=== PATIENT | male | born 1990 | race Caucasian/White ===

== ENCOUNTER 2024-07-10 17:46 | Emergency (ER) | payer MEDICARE, MEDICAID, SELFPAY | END 2024-07-10 19:17 | disposition left against medical advice (07) | LOC: HO.ED 19:03 | PROVIDERS: Emergency Provider Emergency Medicine Emergency Medical Services; PCP Internal Medicine | DX: S61.411A Laceration without foreign body of right hand, initial encounter (principal); X58.XXXA Exposure to other specified factors, initial encounter; Y93.9 Activity, unspecified; Y92.9 Unspecified place or not applicable; Y99.9 Unspecified external cause status; Z53.21 Procedure and treatment not carried out due to patient leaving prior to being seen by health care provider ==

== ENCOUNTER 2024-09-14 11:16 | Outpatient (AMB) | payer MEDICARE, MEDICAID, SELFPAY ==
--- NOTE | 2024-09-14 11:19 | A.OFFVIS_ITS ---
Vital Signs 09/14/24 11:39 Height 5 ft 10 in Weight 275 lb BMI 39.5 Intake Visit Reasons: SHIPPING AND RECEIVING- RT knee pain Intake Note: Darryl is a 33 year old male who presents today for a new patient evaluation of RT knee pain. Patient reports about 2-3 years ago he was training on treadmill, running for an hour straight. He felt relief after two months with a collagen supplement. He continues to have intermittent pain at the anterior aspect of knee. States running does not feel the same. He has clicking when he steps on his leg. Occasional sharp pain. His knee feels weak, stating feels like his knee will snap. Denies giving out. No numbness or tingling. States some discomfort in his left knee as well. Allergies SEASONAL ALLERGIES Allergy (Mild, Uncoded 09/14/24 11:38) UNKNOWN Medication List - Last Reconciled 09/14/24 by Mady Petty PA-C No Known Home Meds HPI HPI SHIPPING AND RECEIVING- RT knee pain: Details: 33-year-old gentleman presents to the office today for right knee pain. He states the pain isn't present for a few years due to over training on a treadmill. He complains of pain behind the patella and constant crepitus. [facility] Social History (Updated 09/14/24 @ 11:39 by BRANDO Estrella) Patient Tobacco Use Status: Never used Tobacco Current occupational status: unemployed Review of Systems Const All systems reviewed & are unremarkable except as noted in HPI and below Physical Exam Vital Signs: BMI result Body Mass Index 39.5 Const General: cooperative and no acute distress Orientation/consciousness: patient oriented x3 Resp Effort & Inspection: normal respiratory effort and able to speak in complete sentences Cardio Peripheral pulses: Peripheral pulses 2+ throughout Neuro General: patient oriented x3 Extrem Other: Right knee skin intact, no erythema or joint effusion. Lateral retropatellar tenderness. ROM full with crepitus. Negative steinmans. No ligamentous laxity. NVI. Office Procedures AMB Joint Injection/Aspiration Joint Injection/Aspiration Details: NO INJECTION GIVEN TODAY Coding Procedure code (CPT) selection complete Results Reviewed Results Reviewed: X-rays of the right knee obtained in the office today and reviewed by me are negative for any acute or chronic abnormalities. Assessment & Plan Assessment & Plan (1) Chondromalacia, right knee: Code(s): M94.261 - Chondromalacia, right knee Category: Medical Plan: We discussed options which include PT, NSAIDs and injections. She will defer on the injection today and proceed with PT and NSAIDs. If symptoms persist she will contact me for an injection, otherwise, prn. Orders: Orders XR knee RT 3V Today M17.11 - Unilateral primary osteoarthritis, right knee XR knee LT 1V Today M25.562 - Pain in left knee Coding Level of Care Code New Pt Level 3 (13657) Complex EM visit Add On G2211 Diagnoses Chondromalacia, right knee M94.261
[2024-09-14 11:39] VITALS: BMI 39.5
== END 2024-09-14 12:10 | disposition home or self-care (01) ==
PROVIDERS: PCP Internal Medicine; Visit Provider Physician Assistant
DX: M94.261 Chondromalacia, right knee (principal)
CPT/HCPCS: 99203; G2211

== ENCOUNTER 2024-09-14 13:58 | Outpatient (REF) | payer MEDICARE, MEDICAID, SELFPAY ==
--- NOTE | ~2024-09-14 | XR_ITS ---
EXAMINATION: XR KNEE 3 VIEWS RIGHT HISTORY: M17.11 - Unilateral primary osteoarthritis, right knee COMPARISON: Comparison is made with the prior examination dated 11/03/2019. FINDINGS: Standing AP views of the bilateral knees and 2 additional views of the right knee are submitted. Osseous mineralization is normal. There is no fracture or dislocation. The joint spaces are preserved. The soft tissues are unremarkable. XR/XR knee RT 3V IMPRESSION: Unremarkable examination of the right knee. Electronically signed by: Owen Brock MD 09/14/2024 03:51 PM YONY
== END 2024-09-14 13:59 | disposition home or self-care (01) ==
LOC: HO.HOSX 13:58
PROVIDERS: Visit Provider Physician Assistant
DX: M17.11 Unilateral primary osteoarthritis, right knee (principal); M25.562 Pain in left knee
CPT/HCPCS: 73562; 99202; J1010; J2003

== ENCOUNTER 2024-09-20 10:17 | Outpatient (AMB) | payer MEDICARE, MEDICAID, SELFPAY ==
[2024-09-20 10:19] VITALS: BMI 40.9
--- NOTE | 2024-09-20 10:19 | A.OFFVIS_ITS ---
Vital Signs 09/20/24 10:19 Height 5 ft 10 in Weight 285 lb 6 oz BMI 40.9 Intake Visit Reasons: Scalp cyst Intake Note: This patient was referred by Dr. Gould for scalp cyst. Pt c/o; occasional pain and discomfort when cyst is pressed on, no headaches or dizziness. Tire Bladder Maker Required: No Accompanied by: Other Relationship Allergies SEASONAL ALLERGIES Allergy (Mild, Uncoded 09/20/24 10:26) UNKNOWN Medication List - Last Reconciled 09/20/24 by Rasta Fernandes MD No Known Home Meds HPI HPI Scalp cyst: Details: 33-year-old male here because of the scalp cyst. He says that he has had this lump on the parietal area for a few years. However, this has been starting to bother him with discomfort and occasional pain and he wants this removed He says he had a scalp cyst this was removed in the past as well. [facility] Medical History (Updated 09/20/24 @ 10:37 by Rasta Fernandes MD) Scalp cyst Morbid obesity Surgical History No pertinent past surgical history Social History Patient Tobacco Use Status: Never used Tobacco Current occupational status: unemployed Review of Systems Const Denies chills and Denies fever(s) Card Denies chest pain, Denies dyspnea and Denies dyspnea on exertion Resp Denies cough, Denies dyspnea and Denies dyspnea on exertion GI Denies hematochezia and Denies change in bowel habits Denies hematuria and Denies difficulty urinating Musc Denies back pain and Denies limited range of motion Neuro Denies focal weakness and Denies convulsions Psych Denies depression and Denies mood swings Physical Exam Vital Signs: BMI result Body Mass Index 40.9 Const General: comfortable and no acute distress Orientation/consciousness: patient oriented x3 HEENT Other: Scalp cyst, about 6 mm in diameter, on the parietal area, noninflamed Neck Neck: Yes no lymphadenopathy Resp Auscultation: clear to auscultation bilaterally Cardio Rhythm: regular rhythm GI Palpation (GI): Soft to palpation, nontender and no guarding Neuro General: patient oriented x3 Assessment & Plan Assessment & Plan (1) Scalp cyst: Code(s): L72.9 - Follicular cyst of the skin and subcutaneous tissue, unspecified Category: Medical Plan: He wants this removed. I explained the technique of excision under local anesthesia. I reviewed the risks including but not limited to bleeding infections, as well as the benefits and alternatives. He understands and wants to proceed. This will be done as the next visit in the office. Coding Level of Care Code New Pt Level 3 (33015) Diagnoses Scalp cyst L72.9
--- OUTSIDE RECORDS SUMMARY | 2024-09-20 12:18 | XMS_ITS | Encounter Summary ---
Author Organization [employer] Address [address] [facility] [address] [place] [address] Care Team Providers Care Robot Programmer Name Role Phone Shauna Grimes MD Primary Care Provide r Encounter Details Date Type Department Care Team ([facility] st Contact Info) Description 09/05/2024 Telephone [facility] [address] [place] [address] All Lebron MD [address] [place] [address] Social History Tobacco Use Types Packs/Day Years Used Date Smoking Tobacco: Never Passive Smoke Exposure: Never Smokeless Tobacco: Never Alcohol Use Standard Drinks/Week Comments Never 0 (1 standard drink = 0.6 oz pur e alcohol) Depression Answer Date Recorded Patient Health Questionnaire-9 Score 8 12/04/2022 Housing Stability Answer Date Recorded What is your housing situation today? I have kendrabrad early 06/12/[address] you li ve. Do you have problems with any of the following? None of the above 06/12/2023 Food Insecurity Answer Date Recorded Within the past 12 months, y ou worried that your food would run out before you got money to buy more: Never True 06/12/2023 Within the past 12 months,th e food you bought just didn't last and you didn't have enough money to get more: Never True Transportation Answer Date Recorded In the past 12 months, has l ack of transportation kept you from medical appts, meetings, work or from getting things needed for daily living? No 06/12/2023 Utilities Answer Date Recorded In the past 12 months, has t he electric, gas, oil or water company threatened to shut off services in your home? No 06/12/2023 Depression Answer Date Recorded Patient Health Questionnaire-2 Score 1 12/04/2022 Sex and Gender Information Value Date Recorded Sex Assigned at Male 06/22/2022 10:15 AM EDT Legal Sex Male 10:15 AM EDT Gender Identity Male 06/22/2022 10:15 AM EDT Sexual Orientation Straight 06/22/2022 10 :15 AM EDT documented as of this encounter Plan of Treatment Upcoming Encounters Date Type Department Care Team (Late st Contact Info) Description 10/13/2024 2:45 PM EST Office Visit [facility] [address] [place] [address] Shauna Grimes MD [address] [place] [phone] documented as of this encounter Visit Diagnoses Not on filedocumented in this encounter Additional Health Concerns Assessment Noted Time PHQ-9 Depression Total Score: 8 12/05/19 23 1:58 PM EDT documented as of this encounter Care Teams Robot Programmer Relationship Specialty Start Date End Date Shauna Grimes MD [address] [place] [phone] PCP - General Family Medicine 01/20/19 documented as of this encounter
--- OUTSIDE RECORDS SUMMARY | 2024-09-20 12:18 | XMS_ITS | Encounter Summary ---
Author Organization [employer] Address [address] [facility] [address] [place] [address] Care Team Providers Care Supervisor Photocomposition Name Role Phone Shauna Grimes MD Primary Care Provide r Encounter Details Date Type Department Care Team (Latest Contact Info) Description 08/30/2024 Travel Social History Tobacco Use Types Packs/Day Years [...] Description 10/13/2024 2:45 PM EST Office Visit [facility] [address] [place] [address] Shauna Grimes MD [address] [place] [address] documented as of this encounter Visit Diagnoses Not on filedocumented in this encounter Additional Health Concerns Assessment Noted Time PHQ-9 Depression Total Score: 8 12/05/19 23 1:58 PM EDT documented as of this encounter Care Teams Supervisor Photocomposition Relationship Specialty Start Date End Date Shauna Grimes MD [address] [place] [address] PCP - General Family Medicine 01/20/19 documented as of this encounter
--- OUTSIDE RECORDS SUMMARY | 2024-09-20 12:18 | XMS_ITS | Encounter Summary ---
Author Organization [employer] Address [address] [place] [address] 7t [place] [address] Care Team Providers Care Senior Power Scheduler Name Role Phone Shauna Grimes MD Primary Care Provide r Reason for Referral * Consultation (Routine) - Authorized Specialty Diagnoses / Procedures Referred By Contac t Referred To Contact General Surgery Diagnoses Scalp cyst All Lebron MD [address] [place] [address] Phone: tel: fax: Rasta Fernandes MD [address] [place] [address] [place] [address] Phone: tel: fax: Referral ID Status Reason Start Date Expiration Date Visits Requested Visits Authorized [id number] Authorized Specialty Services Required 09/05/2024 09/05/2025 1 1 Reason for Visit * Reason Comments Sick Onsite Cyst on scalp Encounter Details Date Type Department Care Team (Late st Contact Info) Description 09/05/2024 3:00 PM EST Office Visit [facility] [address] [place] [address] [phone] All Lebron MD [address] [place], [place] [phone] Scalp cyst (Primary Dx) Social History Tobacco Use Types Packs/Day Years Used Date Smoking Tobacco: Never Passive Smoke Exposure: Never Smokeless Tobacco: Never Alcohol Use Standard Drinks/Week Comments Never 0 (1 standard drink = 0.6 oz pur e alcohol) Depression Answer Date Recorded Patient Health Questionnaire-9 Score 8 12/04/2022 Housing Stability Answer Date Recorded What is your housing situation today? I have ekndra early 06/12/[address] you [...] AM EDT documented as of this encounter Last Filed Vital Signs Vital Sign Reading Time Taken Comments Blood Pressure 142/87 09/05/2024 3:06 PM EST Pulse 88 09/05/2024 3:06 PM EST Temperature 35.4 ??C (95.7 ??F) 09/05/2024 3:06 PM ES T Respiratory Rate 20 09/05/2024 3:06 PM EST Oxygen Saturation 96% 09/05/2024 3:06 PM EST Inhaled Oxygen Concentration - - Weight 129 kg (284 lb) 09/05/2024 3:06 PM EST Height 177.8 cm (5' 10 ) 09/05/2024 3:06 PM EST Body Mass Index 40.75 09/05/2024 3:06 PM EST documented in this encounter Progress Notes * All Hampton MD - 09/05/2024 3:00 PM EST SUBJECTIVE Darryl Marin is a 33 y.o. male who presents for Sick Onsite (Cyst on scalp). Pt here with c/o painful cyst on his scalp. He states he has had this in the past and was surgically removed Review of Systems Constitutional: Negative for fever. HENT: Negative for sore throat. Respiratory: Negative for cough and shortness of breath. Cardiovascular: Negative for chest pain. Gastrointestinal: Negative for abdominal pain. Neurological: Negative for headaches. No Known Allergies OBJECTIVE Vitals: 09/05/24 1506 BP: (!) 142/87 BP Location: Left arm Patient Position: Sitting BP Cuff Size: Large adult Pulse: 88 Resp: 20 Temp: 95.7 ??F (35.4 ??C) TempSrc: Temporal SpO2: 96% Weight: 284 lb (129 kg) Height: 5' 10 (1.778 m) Physical Exam Skin: Comments: Small superficial round, mobile scalp lesion, no redness, no warmth, tenderness to palpation Assessment/Plan Problem List Items Addressed This Visit Scalp cyst - Primary Patient with a small lesion on scalp, suggestive of a cyst. Plan: Referral to general surgery for excision. Relevant Orders Referral to General Surgery documented in this encounter Miscellaneous Notes * Assessment & Plan Note - All Hampton MD - 09/05/2024 3:21 PM EST Associated Problem(s): Scalp cyst Patient with a small lesion on scalp, suggestive of a cyst. Plan: Referral to general surgery for excision. documented in this encounter Plan of Treatment Upcoming Encounters Date Type Department Care Team (Late st Contact Info) Description 10/13/2024 2:45 PM EST Office Visit [facility] [address] [place] [address] Shauna Grimes MD [address] [place] [address] Scheduled Referrals Name Type Priority Associated Diagnoses Orde r Schedule Referral to General Surgery Outpatient Referral Routine Scalp cyst Expected: 09/05/2024 (Approximate), Expires: 09/05/2025 documented as of this encounter Visit Diagnoses Diagnosis Scalp cyst- Primary Sebaceous cyst documented in this encounter Additional Health Concerns Assessment Noted Time PHQ-9 Depression Total Score: 8 12/05/19 23 1:58 PM EDT documented as of this encounter Care Teams Senior Power Scheduler Relationship Specialty Start Date End Date Shauna Grimes MD [address] [place] [address] PCP - General Family Medicine 01/20/19 documented as of this encounter
--- OUTSIDE RECORDS SUMMARY | 2024-09-20 12:18 | XMS_ITS | Encounter Summary ---
Author Organization [employer] Address [address] [facility] 7t [place] [address] Care Team Providers Care Workforce Management Coordinator Name Role Phone Shauna Grimes MD Primary Care Provide r Reason for Visit * Reason Onset Date Comments Nurse Triage 08/29/2024 Encounter Details Date Type Department Care Team ([facility] Contact Info) Description 08/29/2024 Telephone [facility] [address] [place] [address] Shauna Grimes MD [address] [place] [address] Nurse Triage Social History Tobacco Use Types Packs/Day Years Used Date Smoking Tobacco: Never Passive Smoke Exposure: Never Smokeless Tobacco: Never Alcohol Use Standard Drinks/Week Comments Never 0 (1 standard drink = 0.6 oz pur e alcohol) Depression Answer Date Recorded Patient Health Questionnaire-9 Score 8 12/04/2022 Housing Stability Answer Date Recorded What is your housing situation today? I have kendra early 06/12/[address] you [...] AM EDT documented as of this encounter Miscellaneous Notes * Telephone Encounter - Jazmine Monique LPN - 08/29/2024 11:40 AM EST Triage call returned to patient who reports that he had to cancel previous scheduled appt and wouldlike to reschedule for same concern. Has a lump on the back of upper neck in hairline that is tender to touch. No drainage no fever and no reported redness. Patient reports previously had a fatty cyst in same area removed. Disposition reviewed and patient in agreement with plan ASK/ 09/05/24 3pm.Reviewed with patient home care recommendations and reasons to call back. Pt verbalized understanding and agrees. Protocol Used: Skin Lesion - Moles or Growths (Adult) Protocol-Based Disposition: See in Office or Video Visit within 3 Days Override (Final) Disposition: See in Office or Video Visit within 2 Weeks Override Reason: Other Video visit not offered Positive Triage Question: * Patient wants to be seen * All higher-acuity triage questions were negative Care Advice Discussed: * Reasons To Call Back - Fever or pain occurs - Any change in a skin growth or mole - You become worse * Telephone Encounter - Anmol Muro - 08/29/2024 11:27 AM EST Symptom: Skin Lump Outcome: Schedule an urgent appointment (within 4 hours) or talk to a nurse or provider soon Reason: Red and larger than 1 inch The caller accepted this outcome. documented in this encounter Plan of Treatment Upcoming Encounters Date Type Department Care Team (Late st Contact Info) Description 10/13/2024 2:45 PM EST Office Visit [facility] [address] [place] [address] Shauna Grimes MD [address] [place] [address] documented as of this encounter Visit Diagnoses Not on filedocumented in this encounter Additional Health Concerns Assessment Noted Time PHQ-9 Depression Total Score: 8 12/05/19 23 1:58 PM EDT documented as of this encounter Care Teams Workforce Management Coordinator Relationship Specialty Start Date End Date Shauna Grimes MD [address] [place] [phone] PCP - General Family Medicine 01/20/19 documented as of this encounter
--- OUTSIDE RECORDS SUMMARY | 2024-09-20 12:18 | XMS_ITS | Encounter Summary ---
Author Organization [employer] Address [address] [facility] 7t [place] [address] Care Team Providers Care Equipment Service Associate Name Role Phone Shauna Grimes MD Primary Care Provide r Encounter Details Date Type Department Care Team (Latest Contact Info) Description 08/22/2024 Travel Social History Tobacco Use Types Packs/Day [...] Description 10/13/2024 2:45 PM EST Office Visit [facility] [address] [place] [address] Shauna Grimes MD [address] [place] [address] documented as of this encounter Visit Diagnoses Not on filedocumented in this encounter Additional Health Concerns Assessment Noted Time PHQ-9 Depression Total Score: 8 12/05/19 23 1:58 PM EDT documented as of this encounter Care Teams Equipment Service Associate Relationship Specialty Start Date End Date Shauna Grimes MD [address] [place] [phone] PCP - General Family Medicine 01/20/19 documented as of this encounter
--- OUTSIDE RECORDS SUMMARY | 2024-09-20 12:18 | XMS_ITS | Encounter Summary ---
Author Organization [employer] Address [address] [facility] 7t [place] [address] Care Team Providers Care Sandblaster Paint Sprayer Name Role Phone Shauna Grimes MD Primary Care Provide r Encounter Details Date Type Department Care Team ([facility] st Contact Info) Description 08/21/2024 Orders Only [facility] [address] [place] [address] Shauna Grimes MD [address] [place] [address] Social History Tobacco Use Types Packs/Day Years [...] Description 10/13/2024 2:45 PM EST Office Visit [facility] [address] [place] [address] Shauna Grimes MD [address] [place] [phone] documented as of this encounter Visit Diagnoses Not on filedocumented in this encounter Additional Health Concerns Assessment Noted Time PHQ-9 Depression Total Score: 8 12/05/19 23 1:58 PM EDT documented as of this encounter Care Teams Sandblaster Paint Sprayer Relationship Specialty Start Date End Date Shauna Grimes MD [address] [place] [phone] PCP - General Family Medicine 01/20/19 documented as of this encounter
--- OUTSIDE RECORDS SUMMARY | 2024-09-20 12:18 | XMS_ITS | Continuity of Care Document ---
Author Organization [facility] Address [address] [place] [address] Phone Care Team Providers Care Hearing Care Professional Name Role Phone Edson SHANNON, Estrella Unavailable Unavailable Allergies, Adverse Reactions, Alerts Substance Reaction Status Criticality No Known allergies Procedures Procedure Date OFFICE VISIT NEW PT INTERMEDIATE 2009 Advance Directives Directive Yes / No Effective Date File Name No Information Encounters Encounter Description Practice Location Reason(s) For Visit Diagnoses Date Provider Providers Copied on Encounter [facility], [address] [place], [place], [id number] , tel:+ [phone] [facility] No Information Dec-0 1-201 0 Edson De La Rosa. [address] [place], [address]. tel:[phone] OFFICE VISIT NEW PT INTERMEDIATE [facility], [address] [place], [place], [id number] , tel:+ [phone] [facility] establish care (chief complaint) AniridiaObesityOb esity Sep-0 3-201 0 Rahat Crandall. [address] [place], [place], [id number], [place]. tel:[phone] Family History Family Member Type Diagnosis Age At Onset Problem (finding) Family history of Diabetes mellitus Problem (finding) Family history of hyper tension Maternal grandfather Problem (finding) stroke Father Problem (finding) aniridia Father Problem (finding) raised blood lipids Immunizations Vaccine Date Status Comments Td (7 yrs and older) administered Source: New Immunization Record Payers Payer name Insurance type Covered constitution party ID Authoriza tion(s) No Information Social History Type Description Quantity Date Captured Comments Sex Male Smoking Status No Information Chief Complaint And Reason For Visit No Information Reason For Referral Reason For Referral No [...] Future Order: Lab Order T[facility], 3RD GENERATION (190), Appointment on: Ordered History Of Present Illness Encounter Date Complaint History Of Prese nt Illness No Information Functional Status Date Functional Assessmen t No Information Instructions Date Instruction Additional Infor mation No Information Assessments Type Assessment Date No Information Patient Care Teams Name Effective Dates (start - stop) Status Members No Information
--- OUTSIDE RECORDS SUMMARY | 2024-09-20 12:18 | XMS_ITS | Encounter Summary ---
Author Organization [email or web address] Address [address] [facility] 7t [place] [address] Care Team Providers Care Credit Relationship Manager Name Role Phone Barber Grimes MD Primary Care Provide r Reason for Referral * Consultation (Routine) - Authorized Specialty Diagnoses / Procedures Referred By Kevan sauer Referred To Contact Orthopaedic Surgery Diagnoses Chronic pain of right knee Barber Grimes MD [address] [place] [address] Phone: tel: fax: [facility] [address] [place] [address] Phone: tel: Referral ID Status Reason Start Date Expiration Date Visits Requested Visits Authorized [id number] Authorized Specialty Services Required 08/24/2024 08/24/2025 1 1 Reason for Visit * Reason Onset Date Comments Referral 08/21/2024 Encounter Details Date Type Department Care Team ([facility] st Contact Info) Description 08/21/2024 Telephone [facility] [address] [place] [address] [phone] Barber Grimes MD [address] [place] [address] [phone] Referral Social History Tobacco Use Types Packs/Day Years [...] as of this encounter Miscellaneous Notes * Addendum Note - Barber Rodriguez MD - 08/24/2024 11:04 AM ESTAddended by: BARBER ANDERSON on: 08/24/2024 11:04 AM Modules accepted: Orders * Telephone Encounter - Ines Newell RN - 08/22/2024 8:46 AM EST Patient stating it is the right knee. * Telephone Encounter - Ines Newell RN - 08/22/2024 8:40 AM EST Telephone call placed to patient in regards to message below. No answer, left voicemail. Patient tocall as needed. If patient calls back please ask which knee * Telephone Encounter - Radha Urena - 08/21/2024 3:15 PM EST Tc from pt requesting a referral for an orthopedics due to old knee injury pain has been coming andgoing as pt states is bothering. documented in this encounter Plan of Treatment Upcoming Encounters Date Type Department Care Team (Late st Contact Info) Description 10/13/2024 2:45 PM EST Office Visit [facility] [address] [place] [phone] Barber Grimes MD [address] [place] [address] Scheduled Referrals Name Type Priority Associated Diagnoses Order Schedule Referral to Orthopaedic Surgery Outpatient Referral Routine Chronic pain of right knee Expected: 08/24/2024 (Approximate), Expires: 08/24/2025 documented as of this encounter Visit Diagnoses Diagnosis Chronic pain of right knee- Primary documented in this encounter Additional Health Concerns Assessment Noted Time PHQ-9 Depression Total Score: 8 12/05/19 23 1:58 PM EDT documented as of this encounter Care Teams Credit Relationship Manager Relationship Specialty Start Date End Date Barber Griems MD [address] [place] [phone] PCP - General Family Medicine 01/20/19 documented as of this encounter
--- OUTSIDE RECORDS SUMMARY | 2024-09-20 12:18 | XMS_ITS | Encounter Summary ---
Author Organization [employer] Address [address] [facility] [address] 7[address] [place] [address] Care Team Providers Care Manager Stylist Name Role Phone Shauna Grimes MD Primary Care Provide r Encounter Details Date Type Department Care Team ([facility] st Contact Info) Description 09/15/2024 Orders Only [facility] [address] [place] [address] oMnique Davis RN Social History Tobacco Use Types Packs/Day Years [...] Description 10/13/2024 2:45 PM EST Office Visit [facility] [address] [place] [address] Shauna Grimes MD [address] [place] [address] documented as of this encounter Procedures Procedure Name Priority Date/Time Associated Diagnosis Comments CHLAMYDIA/GONORRHEA THROAT SWAB ([facility]) Routine 09/08/2024 CHLAMYDIA/GONORRHEA - URINE ([facility]) Routine 09/08/2024 SYPHILIS ABS ([facility]) Routine 09/08/2024 HEPATITIS C ANTIBODY ([facility]) Routine 09/08/2024 HIV ANTIBODY/ANTIGEN ([facility]) Routine 09/08/2024 documented in this encounter Results * HIV Ab/Ag ([facility]) (09/08/2024) HIV Ag/Ab Nonreactive Blood 09/08/2024 us Historical Provider LAB BLOOD ORDERABLES [facility] Result * Hepatitis C Antibody ([facility]) (09/08/2024) Hepatitis C Ab Nonreactive Blood 09/08/2024 us Historical Provider LAB BLOOD ORDERABLES [facility] Result * Syphilis Antibodies ([facility]) (09/08/2024) Syphilis Abs Nonreactive Borderline, Nonreactive, Weakly Reactive, Inconclusive, Specimen unsatisfactory for evaluation Blood Venous blood specimen / Unknown 09/08/2024 [facility] Provider MD LAB BLOOD ORDERABLES [facility] l Result * Chlamydia/Gonorrhea, Urine ([facility]) (09/08/2024) Chlamydia, Urine Negative Negative, Indeterminate, None Detected, Invalid, Specimen unsatisfactory for evaluation, Weakly Positive Gonorrhea, Urine Negative Negative, Indeterminate, None Detected, Invalid, Specimen unsatisfactory for evaluation, Weakly Positive Urine 09/08/2024 [facility] Provider LAB URINE ORDERABLES [facility] Result * Chlamydia/Gonorrhea Throat Swab ([facility]) (09/08/2024) Chlamydia Throat Swab Negative Gonorrhea Throat Swab Negative Swab 09/08/2024 [facility] Provider LAB MICROBIOLOGY - GENERA L ORDERABLES Final Result documented in this encounter Visit Diagnoses Not on filedocumented in this encounter Additional Health Concerns Assessment Noted Time PHQ-9 Depression Total Score: 8 12/05/19 23 1:58 PM EDT documented as of this encounter Care Teams Manager Stylist Relationship Specialty Start Date End Date Shauna Grimes MD [address] [place] [phone] PCP - General Family Medicine 01/20/19 documented as of this encounter
--- OUTSIDE RECORDS SUMMARY | 2024-09-20 12:18 | XMS_ITS | Clinical Summary ---
Author Organization [employer] Address [address] [place] [address] Care Team Providers Care Dental Technician Instructor Name Role Phone Shauna Grimes MD Primary Care Provide r Allergies No known active allergies Medications * This document contains information received from the source organization and may not represent a complete record from that organization. hydrOXYzine HCl (Atarax) 25 MG tabletIndicatio ns:Insomnia, unspecified type take 1 tablet by oral route every day at bed time 90 tablet 1 3 09/05/19 25 Discontin ued(Thera py completed ) baclofen (Lioresal) 20 MG tabletIndicatio ns:Chronic bilateral low back pain without sciatica Take 1 tablet (20 mg) by mouth 3 times daily. 90 tablet 3 09/05/19 25 Discontin ued(Thera py completed ) cholecalciferol (Vitamin D-3) 50 MCG (1999 UT) capsuleIndicati ons:Vitamin D deficiency Take 1 capsule (50 mcg) by mouth in the morning. 90 capsule 3 3 09/05/19 25 Discontin ued(Thera py completed ) fluticasone (Flonase Allergy Relief) 50 MCG/ACT nasal spray Administer 1 spray into each nostril in the morning. Shake gently. Before first use, prime pump. After use, clean tip and replace cap. 16 g 12 3 09/05/19 25 Discontin ued(Thera py completed ) Active Problems Problem Noted Date Diagnosed Date Scalp cyst 09/05/2024 Assessment & Plan (09/05/2024 3:21 PM EST): Patient with a small lesion on scalp, suggestive of a cyst. Plan: Referral to general surgery for excision. 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 Chronic bilateral low back pain without sciatica 12/04/2022 Assessment & Plan (12/04/2022 2:40 PM EDT): Apply heat on affected area XRAYs other for further investigation Chiropractor referral as per patient's request Ibuprofen 800mg Q 8hrs with full stomach PRN Baclofen 20mg Q 8hrs as needed (may cause somnolence do not drive preferable to take it only at night) RTC 3 months Binge eating disorder 12/04/2022 Anxiety 12/04/2022 Assessment & Plan (01/04/2023 10:09 AM EDT): Assessment: Patient with anxiety, (difficult to control worry difficulty sleeping, over thinking perseverative thoughts) and binge eating (weight fluctuation, overeating, without purging) in the context of a history of trauma in childhood and difficulty with time management and organization. Patient will benefit from out patient therapy (modality/interventions). At this time Darryl Marin meets criteria for Visit Diagnoses: Problem List Items Addressed This Visit Unspecified Anxiety Disorder Binge Eating Disorder Patient ready to address current needs Yes Strengths include Coping mechanism of listening to music and creating beats. PLAN: 1. Follow up with [facility] [place]: Not recommended for follow-up 2. Patient goal is to engage in OP therapy 3. Behavioral Recommendations a. Explore deep breathing and grounding b. Contact [facility] behavioral health supports for follow up as needed Health care maintenance 12/04/2022 Erectile dysfunction 11/05/2022 Class 3 severe obesity due t o excess calories without serious comorbidity in adult 11/05/2022 Encounters Date Type Department Care Team Description 09/15/2024 Orders Only [facility] MEDICINE [address] [place] [id number] Monique Davis RN 09/05/2024 3:00 PM EST Office Visit [address] [address] All Lebron MD Scalp cyst (Primary Dx) 09/05/[address] [facility] MEDICINE [address] [place] [address] All Lebron MD 09/05/2024 Travel 08/30/2024 Travel 08/29/2024 Telephone [facility] [address] [place] [address] Shauna Grimes MD Nurse Triage 08/22/2024 Travel 08/21/2024 Orders Only [facility] [address] [place] [address] Shauna Grimes MD 08/21/2024 Telephone [facility] [address] [place] [address] Shauna Grimes MD Referral 08/21/2024 Telephone [facility] [address] [place] [address] Shauna Grimes MD Nurse Triage from Last 3 Months Immunizations Name Administration Dates Next Due HPV 9-Valent 11/23/2022,,10/28/2021,2020 Influenza Injectable Quadriv alant Preservative Free IIV4 MDCK 05/06/2022 Influenza injectable quadriv alent preservative free 04/14/2019 MMR 01/30/2019 Moderna Covid-19 Vaccine 12+ 11/22/2021,07/15/20 21,11/21/2020 Pfizer Covid-19 Vaccine 12+ Bivalent 05/06/2022 Tdap 07/15/2021,01/30/2019 Social History Tobacco Use Types Packs/Day Years Used Date Smoking Tobacco: Never Passive Smoke Exposure: Never Smokeless Tobacco: Never Tobacco Cessation:Counseling Given: Not Answered Alcohol Use Standard Drinks/Week Comments Never 0 [...] Orientation Straight 06/22/2022 10 :15 AM EDT Last Filed Vital Signs Vital Sign Reading [...] Mass Index 40.75 09/05/2024 3:06 PM EST Plan of Treatment Upcoming Encounters Date Type Department Care Team (Late st Contact Info) Description 10/13/2024 2:45 PM EST Office Visit [facility] MEDICINE [address] [place], [place] [phone] Shauna Grimes MD [address] [place] [address] Health Maintenance Due Date Last Done Comments Alcohol/Substance Use Screening 2000 Family Planning (PISQ) 11/28/2003 Depression Screening 12/05/2023 12/04/2022, 12/05/19 SDOH Screening 12/05/2023 12/04/2022 Hepatitis B Vaccines (3 of 3 - Hep B Twinrix 3-dose series) 12/27/2024 07/29/2024, 06/16/2024 Tobacco Screening 09/05/2025 09/05/2024 Lipid Panel 12/05/2027 12/04/2022 DTaP/Tdap/Td Vaccines (3 - Td or Tdap) 07/15/2031 07/15/2021, 01/30/2019 Zoster Vaccines (2 of 2) 2038 07/11/2024 RSV Patients and Patients Aged 60 years or older (1 - 1-dose 75+ series) 11/28/2063 HPV Vaccines Completed 11/23/2022, 0808/2021, 10/28/2021, Additional history exists COVID-19 Vaccine Completed 06/01/2024, 01/2023, 05/06/2022, Additional history exists Influenza Vaccine Completed 06/01/2024, , 04/14/2019 Pneumococcal Vaccine: Pediatrics (0 to 5 Years) and At-Risk Patients (6 to 49) Years) Aged Out 06/16/2024 No longer eligible based on patient's age to complete this topic Meningococcal Vaccine Aged Out 07/11/2024 No bony elvira eligible based on patient's age to complete this topic Hepatitis A Vaccines Aged Out 07/29/2024, 06/16/20 24 No longer eligible based on patient's age to complete this topic HIV Screening Completed 09/08/2024 Hepatitis C Screening Completed 09/08/2024 HIB Vaccines Aged Out No longer eligi ble based on patient's age to complete this topic IPV Vaccines Aged Out No longer eligi ble based on patient's age to complete this topic RSV under 20 months Aged Out No longe r eligible based on patient's age to complete this topic Rotavirus Vaccines Aged Out No longer eligible based on patient's age to complete this topic Procedures Procedure Name Priority Date/Time Associated Diagnosis Comments HIV ANTIBODY/ANTIGEN ([place] DPH) Routine 09/08/2024 HEPATITIS C ANTIBODY ([place] DPH) Routine 09/08/2024 SYPHILIS ABS ([place] DP) Routine 09/08/2024 CHLAMYDIA/GONORRHEA - URINE ([place] DP) Routine 09/08/2024 CHLAMYDIA/GONORRHEA THROAT SWAB ([place] DP) Routine 09/08/2024 LIPID PANEL, STANDARD Routine 12/04/2022 2:35 PM EDT Class 3 severe obesity due to excess calories without serious comorbidity with body mass index (BMI) of 40.0 to 44.9 in adult ([facility]) from Last 3 Months or Most Recently Relevant to Health Maintenance Results * Chlamydia/Gonorrhea Throat Swab ([place] DP) (09/08/2024) Chlamydia Throat Swab Negative Gonorrhea Throat Swab Negative Swab 09/08/2024 [facility] Provider MD LAB MICROBIOLOGY - GENERA L ORDERABLES Final Result * Chlamydia/Gonorrhea, Urine ([place] DP) (09/08/2024) Pathologist [facility] Chlamydia, Urine Negative Negative, Indeterminate, None Detected, Invalid, Specimen unsatisfactory for evaluation, Weakly Positive Gonorrhea, Urine Negative Negative, Indeterminate, None Detected, Invalid, Specimen unsatisfactory for evaluation, Weakly Positive Urine 09/08/2024 [facility] Provider MD LAB URINE ORDERABLES [place] [facility] Result * Syphilis Antibodies (DP) (09/08/2024) Syphilis Abs Nonreactive Borderline, Nonreactive, Weakly Reactive, Inconclusive, Specimen unsatisfactory for evaluation Blood Venous blood specimen / Unknown 09/08/2024 [facility] Provider LAB BLOOD ORDERABLES [place] Result * Hepatitis C Antibody ([place] DP) (09/08/2024) Hepatitis C Ab Nonreactive Blood 09/08/2024 Historical Provider MD LAB BLOOD ORDERABLES [place] Result * HIV Ab/Ag ([place] DP) (09/08/2024) HIV Ag/Ab Nonreactive Blood 09/08/2024 Historical Provider MD LAB BLOOD ORDERABLES [place] [facility] Result * (ABNORMAL) Lipid Panel, Standard (12/04/2022 2:35 PM EDT) Cholesterol, Total 223(H) <200 mg/dL [facility] HDL Cholesterol 61 > OR = 40 mg/dL [facility] Triglycerides 155(H) <150 mg/dL [facility] LDL Cholesterol 133(H) mg/dL (calc) [facility] Comment: Reference range: <100 Desirable range <100 mg/dL for primary prevention; ?? <70 mg/dL for patients with CHD or diabetic patients with > or = 2 CHD risk factors. LDL-C is now calculated using the Mark-Laila calculation, which is a validated novel method providing better accuracy than the Friedewald equation in the estimation of LDL-C. Mark YOST et al. GUZMAN. 2013;310(19): 2135-8594 (http://education.[employer].Supportie/faq/LSC939) Chol/HDLC Ratio 3.7 <5.0 (calc) [facility] [place] [facility] Non-HDL Cholesterol 162(H) <130 mg/dL (calc) [facility] Comment: For patients with diabetes plus 1 major ASCVD risk factor, treating to a non-HDL-C goal of <100 mg/dL (LDL-C of <70 mg/dL) is considered a therapeutic option. Blood Venous blood specimen / Unknown 12/04/2022 2:35 PM EDT 12/04/2022 2:36 PM EDT Shauna Rodriguez MD LAB BLOOD ORDERABLES Final Result [facility] [address], [place] [address] [facility] [address] [place] [address] from Last 3 Months or Most Recently Relevant to Health Maintenance Insurance MEDICARE Member Subscriber Plan / Payer (Ef fective 2022-Present) Name:Darryl Marin Member ID:[id number] Relation to Subscriber:Self Name:Darryl Marin Subscriber ID:[id number] Payer ID:STATE Group ID:Not on file Type:Medicare Address: [place] [employer] [facility]. [address] [address] [facility] STANDARD Care Teams Dental Technician Instructor Relationship Specialty Start Date End Date Shauna Grimes MD [address] [place] [phone] PCP - General Family Medicine 01/20/19
--- OUTSIDE RECORDS SUMMARY | 2024-09-20 12:18 | XMS_ITS | Encounter Summary ---
Author Organization [employer] Address [address] [facility] 7t [place] [address] Care Team Providers Care Crisis Intervention Counselor Name Role Phone Shauna Grimes MD Primary Care Provide r Encounter Details Date Type Department Care Team (Latest Contact Info) Description 09/05/2024 Travel Social History Tobacco Use Types Packs/Day [...] Description 10/13/2024 2:45 PM EST Office Visit [facility] MEDICINE [address] [place] [address] Shauna Grimes MD [address] [place] [address] documented as of this encounter Visit Diagnoses Not on filedocumented in this encounter Additional Health Concerns Assessment Noted Time PHQ-9 Depression Total Score: 8 12/05/19 23 1:58 PM EDT documented as of this encounter Care Teams Crisis Intervention Counselor Relationship Specialty Start Date End Date Shauna Grimes MD [address] [place] [id number] PCP - General Family Medicine 01/20/19 documented as of this encounter
--- OUTSIDE RECORDS SUMMARY | 2024-09-20 12:18 | XMS_ITS | Encounter Summary ---
Author Organization [employer] Address [address] [facility] 7t [place] [address] Care Team Providers Care Batch Roller Operator Name Role Phone Shauna Grimes MD Primary Care Provide r Reason for Visit * Reason Onset Date Comments Nurse Triage 08/21/2024 Encounter Details Date Type Department Care Team ([facility] Contact Info) Description 08/21/2024 Telephone [facility] [address] [place] [address] Shauna Grimes MD [address] [place] [address] Nurse Triage Social History Tobacco Use Types [...] encounter Miscellaneous Notes * Telephone Encounter - Leticia Mccoy RN - 08/21/2024 3:32 PM EST Call returned to Darryl Marin to triage below. Reports having a lump on scalp and its tender to touch. Not sure if having redness or white center. Per pt about the size of a dime. Per pt has had lump for 2 years. Pt states had sx previously where had area lanced by a provider. Pt advised of disposition, agrees to sick on site with team provider for exam. Reviewed home care advise, ER precautions and reasons to call back. Protocol Used: Skin Lump or Localized Swelling (Adult) Protocol-Based Disposition: See in Office or Video Visit within 3 Days Override (Final) Disposition: See in Office or Video Visit within 2 Weeks Override Reason: No appointments available Future Appointments Date Time Provider Department Center 08/28/2024 10:15 AM Dalila Aguilar DO [facility] 10/13/2024 2:45 PM Shauna Rodriguez MD [facility] Insurance verified as active per Real Time Eligibility in [facility]. Video visit offer not recorded Positive Triage Question: * Small swelling or lump present > 1 week * All higher-acuity triage questions were negative Care Advice Discussed: * Reasons To Call Back - Fever occurs - Spreading redness occurs - Swelling becomes painful - You become worse * Telephone Encounter - Radha Urena - 08/21/2024 3:13 PM EST Symptom: Skin Lump Outcome: Schedule an appointment to be seen within 3 days Reason: Caller denied all higher acuity questions The caller accepted this outcome. documented in this encounter Plan of Treatment Upcoming Encounters Date Type Department Care Team (Late st Contact Info) Description 10/13/2024 2:45 PM EST Office Visit [facility] MEDICINE [address] [place] [phone] Shauna Grimes MD [address] [place] [address] documented as of this encounter Visit Diagnoses Not on filedocumented in this encounter Additional Health Concerns Assessment Noted Time PHQ-9 Depression Total Score: 8 12/05/19 23 1:58 PM EDT documented as of this encounter Care Teams Batch Roller Operator Relationship Specialty Start Date End Date Shauna Grimes MD [address] [place] [id number] PCP - General Family Medicine 01/20/19 documented as of this encounter
--- OUTSIDE RECORDS SUMMARY | 2024-09-20 12:18 | XMS_ITS | Continuity of Care Document ---
Author Organization [employer] Address [address] [place] [address] Phone Care Team Providers Care Flat Grinder Operator Name Role Phone [employer] AUTO SALVAGE WORKER, Bebe Unavailable Unavailab le Allergies, Adverse Reactions, [...] W/OPTIC OFFICE/OUTPATIENT VISIT, EST Medical [employer] WIRELESS SALES ASSOCIATE ROUTINE VENIPUNCTURE ASSAY OF AMYLASE ASSAY OF LIPASE GLYCOSYLATED HEMOGLOBIN TEST COMPLETE CBC W/AUTO DIFF WBC LIPID PANEL COMPREHEN METABOLIC PANEL OFFICE/OUTPATIENT VISIT, EST Medical [employer] Enc WIRELESS SALES ASSOCIATE TELEHEALTH VISIT, EST [facility] [employer] Enc WIRELESS SALES ASSOCIATE OFFICE/OUTPATIENT VISIT, EST Phenergan (Promethazine hcl) injection J Inj Administration Non-antineoplastics J Medical [employer] Enc WIRELESS SALES ASSOCIATE TELEHEALTH VISIT, EST [facility] PH[facility] E/M PHYS/QHP 5-10 MIN OFFICE/OUTPATIENT VISIT, [...] Providers Copied on Encounter OFFICE/[facility]PAT IENT VISIT, [facility] [address], [place], [id number] , [place] [phone] [facility] Medical Clearance (chief complaint) Flu-like symptomsViral illnessElevated liver enzymesElevated bilirubinDyslipi demia 2 [employer] Bebe. [address] [place], [address], [place]. tel:[phone] [facility], [address], [place], [id number] , [place] [phone] [facility] Medical Elevated liver enzymesElevated bilirubinHypertr iglyceridemia 2 Shadowens Bebe. [address] [place], [address], [place]. tel:[phone] OFFICE/OUTPAT IENT VISIT, [facility] [address], [place], [id number] , [place] [phone] [facility] Medical Med refill (chief complaint) Recurrent pancreatitisScre ening for lipid disorders 2 Shadowens Bebe. [address] [place], [address], [place]. tel:[phone] TELEHEALTH VISIT, [facility], [address], [place], [id number] , [place] [phone] Telehealth [facility] exposure to covid (chief complaint) COVID-19 virus infection 2 Shadowens Bebe. [address] [place], [address], [place]. [phone] OFFICE/OUTPAT IENT VISIT, [facility], [facility]., [address], [place], [id number] , [place] tel:[phone] [facility] Medical Vomiting (chief complaint) Recurrent pancreatitis 2 Cookie Tubbs. [address] , [place], [place], [id number], [place]. [phone] TELEHEALTH VISIT, [facility], [facility]., [address], [place], [id number] , [place] tel:[phone] [facility] Medical ear infection (chief complaint) Right ear pain 0 Irma Fu. [address] [place], [place], [id number], [place]. tel:[phone] OFFICE/OUTPAT IENT VISIT, [facility], [facility]., [address], [place], [id number] , [place] tel: [phone] [facility] Medical Seizure (chief complaint) Nonintractable epilepsy without status epilepticus, unspecified epilepsy type 8 Alma Terry APRN,[facility]- . [address] [facility] [facility] , [place], [place], [id number], [place]. tel:[phone] Family History Family Member Type Diagnosis Age At Onset No Information Payers Payer name Insurance type Covered democrat ID Sheela lara(s) [facility] Medicaid Count Includes [facility] [id number] Social History Type Description Quantity Date Captured [...] Lab Order Comp. Me tabolic Panel (14) ([id number]), Ordered on: Ordered Future Order: Lab Order Lipid Pa sandrine ([id number]), Ordered on: Ordered History Of Present Illness [...] Mental Status Date Cognitive Assessment Orientation - [place] ed to time, place, person, situation. Patient Care Teams Name Effective Dates (start - stop) Status Members No Information
--- OUTSIDE RECORDS SUMMARY | 2024-09-20 12:18 | XMS_ITS | Encounter Summary ---
Author Organization [employer] Address [address] [facility] 7t [place] [address] Care Team Providers Care Bolter Helper Name Role Phone Shauna Grimes MD Primary Care Provide r Encounter Details Date Type Department Care Team ([facility] Contact Info) Description 11/17/2022 Telephone [facility] MEDICINE [address] [place] [phone] Shauna Grimes MD [address] [place] [address] [phone] Social History Tobacco Use Types Packs/Day Years Used Date Smoking Tobacco: Never Smokeless Tobacco: Never Alcohol Use Standard Drinks/Week Comments Never 0 (1 standard drink = 0.6 oz pur e alcohol) Sex and Gender Information Value Date Recorded Sex Assigned at Male 06/22/2022 10:15 AM EDT Legal Sex Male 10:15 AM EDT Gender Identity Male 06/22/2022 10:15 AM EDT Sexual Orientation Straight 06/22/2022 10 :15 AM EDT documented as of this encounter Plan of Treatment Upcoming Encounters Date Type Department Care Team (Late Contact Info) Description 10/13/2024 2:45 PM EST Office Visit [facility] MEDIC[facility] [address] [place] [phone] Shauna Grimes MD [address] [place] [phone] documented as of this encounter Visit Diagnoses Not on filedocumented in this encounter Care Teams Bolter Helper Relationship Specialty Start Date End Date Shauna Grimes MD [address] [place] [address] PCP - General Family Medicine 01/20/19 documented as of this encounter
== END 2024-09-20 10:34 | disposition home or self-care (01) ==
PROVIDERS: PCP Internal Medicine; Referring Provider Internal Medicine; Visit Provider Surgery
DX: L72.9 Follicular cyst of the skin and subcutaneous tissue, unspecified (principal)
CPT/HCPCS: 99203

== ENCOUNTER → 2024-09-20 10:17 | Outpatient (BNVA) | payer MEDICARE, MEDICAID, SELFPAY | PROVIDERS: PCP Internal Medicine; Referring Provider Internal Medicine; Visit Provider Surgery | DX: L72.9 Follicular cyst of the skin and subcutaneous tissue, unspecified (principal) | CPT/HCPCS: 99202 ==

== ENCOUNTER 2024-09-27 13:55 | Outpatient (AMB) | payer MEDICARE, MEDICAID, SELFPAY ==
[2024-09-27 13:56] VITALS: BMI 40.9
--- NOTE | 2024-09-27 13:56 | A.OFFVIS_ITS ---
Vital Signs 09/27/24 13:56 Height 5 ft 10 in Weight 285 lb 6.002 oz BMI 40.9 Intake Visit Reasons: excision Scalp cyst Intake Note: Office procedure: excision Scalp cyst Mechanical Equipment Sales Engineer Required: No Accompanied by: Life Partner Allergies SEASONAL ALLERGIES Allergy (Mild, Uncoded 09/27/24 14:02) UNKNOWN HPI HPI excision Scalp cyst: Details: He is here for excision of the scalp cyst. An current exam today, I could not actually feel the cyst but he insisted that he could feel the cystic mass he wants this removed because of pain. I had him marked the area where he believes the cyst is. He had given informed consent. [facility] Medical History Scalp cyst Morbid obesity Surgical History No pertinent past surgical history Social History Patient Tobacco Use Status: Never used Tobacco Current occupational status: unemployed Physical Exam Vital Signs: BMI result Body Mass Index 40.9 Office Procedures Excision Details: I had marked the area where he pointed to us where the cyst was. This area was prepped and draped. Lidocaine 1% was used for local anesthesia. I made an elliptical incision on the scalp surrounding this area with a blade 15. This carried down through the full-thickness of the skin and subcutaneous fat. I excised this entire area although I did not really feel an obvious cyst. I closed the incision with full-thickness nylon 3-0 simple interrupted sutures. Bacitracin was applied and the procedure was completed. He tolerated procedure well. There were no immediate complications. There was minimal blood loss. [id number] scalp/neck/hands/feet/genitalia 0.6cm-1cm Procedure code (CPT) selection complete Assessment & Plan Assessment & Plan (1) Scalp cyst: Code(s): L72.9 - Follicular cyst of the skin and subcutaneous tissue, unspecified Category: Medical Plan: Status post excision. He tolerated procedure well. He was given wound care instructions. I will see him for removal sutures in about 2 weeks. Coding Level of Care Code Procedure Only Diagnoses Scalp cyst L72.9 CPT Codes Scalp/Neck/Hands/Feet/Genetalia - CPT: 87619-Ynjmehou scalp/neck/hands/feet/genitalia 0.6cm-1cm ([id number])
--- OUTSIDE RECORDS SUMMARY | 2024-09-27 15:14 | XMS_ITS | Continuity of Care Document ---
Author Organization [employer] Address [address] [place] [address] Phone Care Team Providers Care Heel Coverer Machine Operator Name Role Phone Shadowens PODIATRIC SURGEON, Bebe Unavailable Unavailab le Allergies, Adverse Reactions, [...] W/OPTIC OFFICE/OUTPATIENT VISIT, EST Medical [employer] Enc ASSISTANT PROFESSOR OF ECONOMICS ROUTINE VENIPUNCTURE ASSAY OF AMYLASE ASSAY OF LIPASE GLYCOSYLATED HEMOGLOBIN TEST COMPLETE CBC W/AUTO DIFF WBC LIPID PANEL COMPREHEN METABOLIC PANEL OFFICE/OUTPATIENT VISIT, EST Medical [employer] Enc ASSISTANT PROFESSOR OF ECONOMICS TELEHEALTH VISIT, EST [facility] Medcaid Enc ASSISTANT PROFESSOR OF ECONOMICS OFFICE/OUTPATIENT VISIT, EST Phenergan (Promethazine hcl) injection J Inj Administration Non-antineoplastics J Medical Med[employer] Enc ASSISTANT PROFESSOR OF ECONOMICS TELEHEALTH VISIT, EST [facility] PHONE E/M PHYS/QHP 5-10 MIN OFFICE/OUTPATIENT VISIT, [...] Providers Copied on Encounter OFFICE[facility]IT, [facility] [address], [place], [id number] , [place] [phone] [facility] Medical Clearance (chief complaint) Flu-like symptomsViral illnessElevated liver enzymesElevated bilirubinDyslipi demia 2 Shadowens Bebe. [address] [place], [address], [place]. tel:[phone] [facility], [address], [place], [address] , [place] [phone] [facility] Medical Elevated liver enzymesElevated bilirubinHypertr iglyceridemia 2 Shadowens Bebe. [address] [place], [address], [place]. tel:[phone] OFFICE/OUTPAT IENT VISIT, [facility] [address], [place], [id number] , [place] [phone] [facility] Medical Med refill (chief complaint) Recurrent pancreatitisScre ening for lipid disorders 2 Shadowens Bebe. [address] [place], [address], [place]. tel:[phone] TELEHEALTH VISIT, [facility], [address], [place], [address] , [place] [phone] Telehealth [facility] exposure to covid (chief complaint) COVID-19 virus infection 2 Shadowens Bebe. [address] [place], [address], [place]. [phone] OFFICE/OUTPAT IENT VISIT, [facility], [facility]., [address], [place], [address] , [place] tel:[phone] 03 [facility] Medical Vomiting (chief complaint) Recurrent pancreatitis 2 Cookie Tubbs. [address] , [place], [place], [id number], [place]. [phone] TELEHEALTH VISIT, [facility], [facility]., [address], [place], [address] , [place] tel:[phone] 03 [facility] Medical ear infection (chief complaint) Right ear pain 0 Irma Fu. [address], [place], [address], [place]. tel:[phone] OFFICE/OUTPAT IENT VISIT, [facility], [facility]., [address], [place], [address] , [place] tel: [phone] [facility] Medical Seizure (chief complaint) Nonintractable epilepsy without status epilepticus, unspecified epilepsy type 8 Alma Terry APRN,[facility]- . [address] [facility] [address] , [place], [place], [address], [place]. tel:[phone] Family History Family Member Type Diagnosis Age At Onset No Information Payers Payer name Insurance type Covered libertarian ID Sheela lara(s) [facility] Medicaid [facility] [id number] Social History Type Description Quantity Date Captured [...] Lab Order Comp. Me tabolic Panel (14) ([id number]), Ordered on: Ordered Future Order: Lab Order Lipid Pa sandrine ([id number]), Ordered on: Ordered History Of Present Illness [...] Mental Status Date Cognitive Assessment Orientation - Maryneal ed to time, place, person, situation. Patient Care Teams Name Effective Dates (start - stop) Status Members No Information
--- OUTSIDE RECORDS SUMMARY | 2024-09-27 15:14 | XMS_ITS | Encounter Summary ---
Author Organization [employer] Address [address] [facility] 7t [place] [address] Care Team Providers Care Building Maintenance Mechanic Name Role Phone Shauna Grimes MD Primary Care Provide r Encounter Details Date Type Department Care Team ([facility] st Contact Info) Description 09/05/2024 Telephone [facility] MEDICINE [address] [place] [address] All Lebron MD [address] [place] [address] Social History Tobacco Use Types Packs/Day Years [...] Description 10/13/2024 2:45 PM EST Office Visit [facility] MED[facility]INE [address] [place] [address] Shauna Grimes MD [address] [place] [address] documented as of this encounter Visit Diagnoses Not on filedocumented in this encounter Additional Health Concerns Assessment Noted Time PHQ-9 Depression Total Score: 8 12/05/19 23 1:58 PM EDT documented as of this encounter Care Teams Building Maintenance Mechanic Relationship Specialty Start Date End Date Shauna Grimes MD [address] [place] [address] PCP - General Family Medicine 01/20/19 documented as of this encounter
--- OUTSIDE RECORDS SUMMARY | 2024-09-27 15:14 | XMS_ITS | Encounter Summary ---
Author Organization [employer] Address [address] [facility] 7t [place] [address] Care Team Providers Care Structural Engineer Name Role Phone Shauna Grimes MD Primary [...] Description 10/13/2024 2:45 PM EST Office Visit [facility]INE [address] [place] [address] Shauna Grimes MD [address] [place] [address] documented as of this encounter Visit Diagnoses Not on filedocumented in this encounter Additional Health Concerns Assessment Noted Time PHQ-9 Depression Total Score: 8 12/05/19 23 1:58 PM EDT documented as of this encounter Care Teams Structural Engineer Relationship Specialty Start Date End Date Shauna Grimes MD [address] [place] [address] PCP - General Family Medicine 01/20/19 documented as of this encounter
--- OUTSIDE RECORDS SUMMARY | 2024-09-27 15:14 | XMS_ITS | Encounter Summary ---
Author Organization [employer] Address [address] [facility] 7t [place] [address] Care Team Providers Care Passenger Car Conductor Name Role Phone Shauna Grimes MD Primary Care Provide r Encounter Details Date Type Department Care Team ([facility] Contact Info) Description 11/17/2022 Telephone [facility] MEDICINE [address] [place] [phone] Shauna Grimes MD [address] [place] [address] [phone] Social History Tobacco Use Types Packs/Day Years [...] Description 10/13/2024 2:45 PM EST Office Visit [facility] MEDICINE [address] [place] [address] [phone] Shauna Grimes MD [address] [place] [address] [phone] documented as of this encounter Visit Diagnoses Not on filedocumented in this encounter Care Teams Passenger Car Conductor Relationship Specialty Start Date End Date Shauna Grimes MD [address] [place] [address] PCP - General Family Medicine 01/20/19 documented as of this encounter
--- OUTSIDE RECORDS SUMMARY | 2024-09-27 15:14 | XMS_ITS | Clinical Summary ---
Author Organization [employer] Address [address] [facility] 7t [place] [address] Care Team Providers Care Integrated Logistics Support Manager Name Role Phone Shauna Grimes MD Primary [...] beats. PLAN: 1. Follow up with [facility]: Not recommended for follow-up 2. Patient goal is to engage in OP therapy 3. Behavioral Recommendations a. Explore deep breathing and grounding b. Contact [facility] behavioral health supports for follow up as needed Health care maintenance 12/04/2022 Erectile dysfunction 11/05/2022 Class 3 severe obesity due t o excess calories without serious comorbidity in adult 11/05/2022 Encounters Date Type Department Care Team Description 09/15/2024 Orders Only [facility] MEDICINE [address] [place] [address] Monique Davis RN 09/05/2024 3:00 PM EST Office Visit [address] [address] All Lebron MD Scalp cyst (Primary Dx) 09/05/2024 Telephone [facility] MEDICINE [address] [place] [address] All Lebron MD 09/05/2024 Travel 08/30/2024 Travel 08/29/2024 Telephone [facility] [address] [place] [address] Shauna Grimes MD Nurse Triage 08/22/2024 Travel 08/21/2024 Orders Only [facility] [address] [place] [address] Shauna Grimes MD 08/21/2024 Telephone [facility] [address] [place] [address] Shauna Grimes MD Referral 08/21/2024 Telephone [facility] [address] [place] [address] Shauna Grimes MD Nurse Triage from Last [...] Description 10/13/2024 2:45 PM EST Office Visit [facility] MEDICINE [address] [place], [place] [phone] Shauna Grimes MD 230 [place] [address] Health Maintenance Due Date Last Done Comments [...] ANTIBODY ([place] DPH) Routine 09/08/2024 SYPHILIS ABS ([place] DP) Routine 09/08/2024 CHLAMYDIA/GONORRHEA - URINE ([place] DP) Routine 09/08/2024 CHLAMYDIA/GONORRHEA THROAT SWAB ([place] DP) Routine 09/08/2024 LIPID PANEL, STANDARD Routine 12/04/2022 2:35 PM EDT Class 3 severe obesity due to excess calories without serious comorbidity with body mass index (BMI) of 40.0 to 44.9 in adult ([facility]) from Last 3 Months or Most Recently Relevant to Health Maintenance Results * Chlamydia/Gonorrhea Throat Swab ([place] DP) (09/08/2024) Chlamydia Throat Swab Negative Gonorrhea Throat Swab Negative Swab 09/08/2024 [facility] Provider MD LAB MICROBIOLOGY - GENERA L ORDERABLES Final Result * Chlamydia/Gonorrhea, Urine ([place] DP) (09/08/2024) Pathologist [facility] Chlamydia, Urine Negative Negative, Indeterminate, None Detected, Invalid, Specimen unsatisfactory for evaluation, Weakly Positive Gonorrhea, Urine Negative Negative, Indeterminate, None Detected, Invalid, Specimen unsatisfactory for evaluation, Weakly Positive Urine 09/08/2024 [facility] Provider MD LAB URINE ORDERABLES Yokasta l Result * Syphilis Antibodies (DP) (09/08/2024) Syphilis Abs Nonreactive Borderline, Nonreactive, Weakly Reactive, Inconclusive, Specimen unsatisfactory for evaluation Blood Venous blood specimen / Unknown 09/08/2024 [facility] Provider LAB BLOOD ORDERABLES Yokasta l Result * Hepatitis C Antibody ([place] DP) (09/08/2024) Hepatitis C Ab Nonreactive Blood 09/08/2024 Historical Provider MD LAB BLOOD ORDERABLES Yokasta l Result * HIV Ab/Ag ([place] DP) (09/08/2024) HIV Ag/Ab Nonreactive Blood 09/08/2024 Historical Provider MD LAB BLOOD ORDERABLES Yokasta l Result * (ABNORMAL) Lipid Panel, Standard (12/04/2022 2:35 PM EDT) Cholesterol, Total 223(H) <200 mg/dL [facility] HDL Cholesterol 61 > OR = 40 mg/dL [facility] Triglycerides 155(H) <150 mg/dL [facility] LDL Cholesterol 133(H) mg/dL (calc) [facility] Comment: Reference range: <100 Desirable range <100 mg/dL for primary prevention; ?? <70 mg/dL for patients with CHD or diabetic patients with > or = 2 CHD risk factors. LDL-C is now calculated using the Mark-Laila calculation, which is a validated novel method providing better accuracy than the Friedewald equation in the estimation of LDL-C. Mark YOST et al. GUZMAN. 2013;310(19): 3721-1046 (http://education.Serious [employer] Renewables/faq/GLV110) Chol/HDLC Ratio 3.7 <5.0 (calc) [facility] Non-HDL Cholesterol 162(H) <130 mg/dL (calc) [facility] Comment: For patients with diabetes plus 1 major ASCVD risk factor, treating to a non-HDL-C goal of <100 mg/dL (LDL-C of <70 mg/dL) is considered a therapeutic option. Blood Venous blood specimen / Unknown 12/04/2022 2:35 PM EDT 12/04/2022 2:36 PM EDT Shauna Rodriguez MD LAB BLOOD ORDERABLES Final Result [facility] [address], [place] [address] [facility] [address] [place] [address] from Last 3 Months or Most Recently Relevant to Health Maintenance Insurance MEDICARE Member Subscriber Plan / Payer (Ef fective 2022-Present) Name:Darryl Marin Member ID:[id number] Relation to Subscriber:Self Name:Darryl Marin Subscriber ID:[id number] Payer ID:STATE Group ID:Not on file Type:Medicare Address: [place] [facility]. [address] [address] [facility] STANDARD Care Teams Integrated Logistics Support Manager Relationship Specialty Start Date End Date Shauna Grimes MD [address] [place] [address] PCP - General Family Medicine 01/20/19
--- OUTSIDE RECORDS SUMMARY | 2024-09-27 15:14 | XMS_ITS | Encounter Summary ---
Author Organization [employer] Address [address] [place] [address] 7t [place] [address] Care Team Providers Care Bridge Saw Operator Name Role Phone Shauna Grimes MD Primary Care Provide r Reason for Referral * Consultation (Routine) - Closed Specialty Diagnoses / Procedures Referred By Contac t Referred To Contact General Surgery Diagnoses Scalp cyst All Lebron MD [address] [place] [address] Phone: tel: fax: Rasta Fernandes MD [address] [place] [address] [place] [address] Phone: tel: fax: Referral ID Status Reason Start Date Expiration Date V isits Requested Visits Authorized [id number] Closed Specialty Services Required 09/05/2024 09/05/2025 1 1 Reason for Visit * Reason Comments Sick Onsite Cyst on scalp Encounter Details Date Type Department Care Team (Late st Contact Info) Description 09/05/2024 3:00 PM EST Office Visit [facility] MEDICINE [address] [place] [address] [phone] All Lebron MD [address] [place], [place] [phone] Scalp cyst (Primary Dx) Social History Tobacco [...] Description 10/13/2024 2:45 PM EST Office Visit [facility] MEDICINE 230 [place] [address] Shauna Grimes MD [address] [place] [address] Scheduled Referrals Name Type Priority [...] documented as of this encounter Care Teams Bridge Saw Operator Relationship Specialty Start Date End Date Shauna Grimes MD [address] [place] [address] PCP - General Family Medicine 01/20/19 documented as of this encounter
--- OUTSIDE RECORDS SUMMARY | 2024-09-27 15:14 | XMS_ITS | Encounter Summary ---
Author Organization [employer] Address [address] [facility] [address] 7t [place] [address] Care Team Providers Care Airport Operations Manager Name Role Phone Shauna Grimes MD Primary Care Provide r Encounter Details Date Type Department Care Team ([facility] st Contact Info) Description 09/15/2024 Orders Only [facility] MEDICINE [address] [place] [address] Monique Davis RN Social History Tobacco Use Types [...] Description 10/13/2024 2:45 PM EST Office Visit [facility] MEDICINE [address] [place] [address] Shauna Grimes MD 230 [place] [address] documented as of this encounter Procedures Procedure [...] Blood Venous blood specimen / Unknown 09/08/2024 [facility] Provider MD LAB BLOOD ORDERABLES Yokasta l Result * Chlamydia/Gonorrhea, Urine ([facility]) (09/08/2024) Chlamydia, Urine Negative Negative, Indeterminate, None Detected, Invalid, Specimen unsatisfactory for evaluation, Weakly Positive Gonorrhea, Urine Negative Negative, Indeterminate, None Detected, Invalid, Specimen unsatisfactory for evaluation, Weakly Positive Urine 09/08/2024 [facility] Provider LAB URINE ORDERABLES [facility]okasta [facility] Result * Chlamydia/Gonorrhea Throat Swab ([facility]) (09/08/2024) Chlamydia Throat Swab Negative Gonorrhea Throat Swab Negative Swab 09/08/2024 [facility] Provider LAB MICROBIOLOGY - GENERA L ORDERABLES Final Result documented in this encounter Visit Diagnoses Not on filedocumented in this encounter Additional Health Concerns Assessment Noted Time PHQ-9 Depression Total Score: 8 12/05/19 23 1:58 PM EDT documented as of this encounter Care Teams Airport Operations Manager Relationship Specialty Start Date End Date Shauna Grimes MD [address] [place] [address] PCP - General Family Medicine 01/20/19 documented as of this encounter
--- OUTSIDE RECORDS SUMMARY | 2024-09-27 15:15 | XMS_ITS | Encounter Summary ---
Author Organization [employer] Address [address] [facility] 7t [place] [address] Care Team Providers Care Investigation Division Captain Name Role Phone Shauna Grimes MD Primary [...] Description 10/13/2024 2:45 PM EST Office Visit [facility] MEDICINE [address] [place] [address] Shauna Grimes MD [address] [place] [address] documented as of this encounter Visit Diagnoses Not on filedocumented in this encounter Additional Health Concerns Assessment Noted Time PHQ-9 Depression Total Score: 8 12/05/19 23 1:58 PM EDT documented as of this encounter Care Teams Investigation Division Captain Relationship Specialty Start Date End Date Shauna Grimes MD [address] [place] [address] PCP - General Family Medicine 01/20/19 documented as of this encounter
--- OUTSIDE RECORDS SUMMARY | 2024-09-27 15:15 | XMS_ITS | Encounter Summary ---
Author Organization [employer] Address [address] [facility] 7t [place] [address] Care Team Providers Care Keno Attendant Name Role Phone Shauna Grimes MD Primary Care Provide r Reason for Visit * Reason Onset Date Comments Nurse Triage 08/29/2024 Encounter Details Date Type Department Care Team ([facility] Contact Info) Description 08/29/2024 Telephone [facility] MEDICINE [address] [place] [address] Shauna Grimes MD [address] [place] [address] Nurse Triage Social History Tobacco Use Types [...] Description 10/13/2024 2:45 PM EST Office Visit [facility] MEDICINE [address] [place] [address] Shauna Grimes MD [address] [place] [address] documented as of this encounter Visit Diagnoses Not on filedocumented in this encounter Additional Health Concerns Assessment Noted Time PHQ-9 Depression Total Score: 8 12/05/19 23 1:58 PM EDT documented as of this encounter Care Teams Keno Attendant Relationship Specialty Start Date End Date Shauna Grimes MD [address] [place] [address] PCP - General Family Medicine 01/20/19 documented as of this encounter
--- OUTSIDE RECORDS SUMMARY | 2024-09-27 15:15 | XMS_ITS | Encounter Summary ---
Author Organization [employer] Address [address] [facility] 7t [place] [address] Care Team Providers Care Plastic Products Sales Representative Name Role Phone Shauna Grimes MD Primary Care Provide r Encounter Details Date Type Department Care Team ([facility] st Contact Info) Description 08/21/2024 Orders Only [facility] MEDICINE [address] [place] [address] Shauna Grimes MD [address] [place] [address] Social History Tobacco Use Types Packs/Day Years [...] Office Visit [facility] MEDICINE [address] [place] [address] Shauna Grimes MD [address] [place] [address] documented as of this encounter Visit Diagnoses Not on filedocumented in this encounter Additional Health Concerns Assessment Noted Time PHQ-9 Depression Total Score: 8 12/05/19 23 1:58 PM EDT documented as of this encounter Care Teams Plastic Products Sales Representative Relationship Specialty Start Date End Date Shauna Grimes MD [address] [place] [address] PCP - General Family Medicine 01/20/19 documented as of this encounter
--- OUTSIDE RECORDS SUMMARY | 2024-09-27 15:15 | XMS_ITS | Continuity of Care Document ---
Author Organization [facility] Address [address] [place] [address] Phone Care Team Providers Care Vest Tailor Name Role Phone Edson SHANNON, Estrella Unavailable Unavailable Allergies, Adverse Reactions, Alerts Substance Reaction Status Criticality No Known allergies Procedures Procedure Date OFFICE VISIT NEW PT INTERMEDIATE 2009 Advance Directives Directive Yes / No Effective Date File Name No Information Encounters Encounter Description Practice Location Reason(s) For Visit Diagnoses Date Provider Providers Copied on Encounter [facility], [address] [place], [place], [id number] , tel:+ [phone] [facility] No Information Dec-0 1-201 0 Edson De La Rosa. [address] [place], [address]. tel:[phone] OFFICE VISIT NEW PT INTERMEDIATE [facility], [address] [place], [place], [id number] , tel:+ [phone] [facility] establish care (chief complaint) AniridiaObesityOb esity Sep-0 3-201 0 Rahat Crandall. [address] [place], [place], [id number], [place]. tel:[phone] Family History Family Member Type Diagnosis Age [...]
== END 2024-09-27 14:20 | disposition home or self-care (01) ==
PROVIDERS: PCP Internal Medicine; Visit Provider Surgery
DX: L72.9 Follicular cyst of the skin and subcutaneous tissue, unspecified (principal)
CPT/HCPCS: 11422

== ENCOUNTER 2024-09-27 13:55 | Outpatient (REF) | payer MEDICARE, MEDICAID, SELFPAY ==
--- OUTSIDE RECORDS SUMMARY | 2024-09-27 15:36 | XMS_ITS | Continuity of Care Document ---
Author Organization [facility] Address [address] [place] [address] Phone Care Team Providers Care Grinding Machine Tender Name Role Phone Edson SHANNON, Estrella Unavailable Unavailable Allergies, Adverse Reactions, Alerts Substance Reaction Status Criticality No Known allergies Procedures Procedure Date OFFICE VISIT NEW PT INTERMEDIATE 2009 Advance Directives Directive Yes / No Effective Date File Name No Information Encounters Encounter Description Practice Location Reason(s) For Visit Diagnoses Date Provider Providers Copied on Encounter [facility], [address] [place], [place], [id number] , tel:+ [phone] [facility] No Information Dec-0 1-201 0 Edson De La Rosa. [address] [place], [address]. tel:[phone] OFFICE VISIT NEW PT INTERMEDIATE [facility], [address] [place], [place], [id number] , tel:+ [phone] [facility] establish care (chief complaint) AniridiaObesityOb esity Sep-0 3-201 0 Rahat Crandall. [address] [place], [place], [id number], [place]. tel:[phone] Family History Family Member Type Diagnosis Age [...]
--- OUTSIDE RECORDS SUMMARY | 2024-09-27 15:36 | XMS_ITS | Continuity of Care Document ---
Author Organization [employer] Address [address] [place] [address] Phone Care Team Providers Care Stock Plan Administrator Name Role Phone Shadowens WINDOWS ARCHITECT, Bebe Unavailable Unavailab le Allergies, Adverse Reactions, [...] W/OPTIC OFFICE/OUTPATIENT VISIT, EST Medical [facility] CENTRAL OFFICE OPERATOR ROUTINE VENIPUNCTURE ASSAY OF AMYLASE ASSAY OF LIPASE GLYCOSYLATED HEMOGLOBIN TEST COMPLETE CBC W/AUTO DIFF WBC LIPID PANEL COMPREHEN METABOLIC PANEL OFFICE/OUTPATIENT VISIT, EST Medical [facility] [facility] CENTRAL OFFICE OPERATOR TELEHEALTH VISIT, EST [facility] CENTRAL OFFICE OPERATOR OFFICE/OUTPATIENT VISIT, EST Phenergan (Promethazine hcl) injection J Inj Administration Non-antineoplastics J Medical [facility] [facility] CENTRAL OFFICE OPERATOR TELEHEALTH VISIT, EST [facility] PH[facility] E/M PHYS/QHP 5-10 MIN [...] Providers Copied on Encounter OFFICE/OUTPAT IENT VISIT, [facility] [[email or web address] [address], [place], [id number] , [place] [phone] [facility] Medical Clearance (chief complaint) Flu-like symptomsViral illnessElevated liver enzymesElevated bilirubinDyslipi demia 2 Shadowens Bebe. [address] [place], [address], [place]. tel:[phone] [facility], [address], [place], [id number] , [place] [phone] [facility] Medical Elevated liver enzymesElevated bilirubinHypertr iglyceridemia 2 Shadowens Bebe. [address] [place], [address], [place]. tel:[phone] OFFICE/OUTPAT IENT VISIT, [facility] [[email or web address] [address], [place], [id number] , [place] [phone] [facility] Medical Med refill (chief complaint) Recurrent pancreatitisScre ening for lipid disorders 2 Shadowens Bebe. [address] [place], [address], [place]. tel:[phone] [facility]IS[facility], [address], [place], [id number] , [place] [phone] Telehealth [facility] exposure to covid (chief complaint) COVID-19 virus infection 2 Shadowens Bebe. [address] [place], [address], [place]. [phone] OFFICE/OUTPAT IENT VISIT, [facility] [[email or web address]], [facility] [address], [place], [id number] , [place] tel:[phone] [facility] Medical Vomiting (chief complaint) Recurrent pancreatitis 2 Cookie Tubbs. [address] , [place], [place], [id number], [place]. [phone] TELEHEALTH VISIT, [facility], [facility] [address], [place], [id number] , [place] tel:[phone] [facility] Medical ear infection (chief complaint) Right ear pain 0 Irma Fu. [address], [place], [id number], [place]. tel:[phone] OFFICE/OUTPAT IENT VISIT, [facility], [facility] [address], [place], [address] , [place] tel: [phone] [facility] Medical Seizure (chief complaint) Nonintractable epilepsy without status epilepticus, unspecified epilepsy type 8 Alma Terry APRN,[facility]- . [address] [facility] [place], [place], [address], [place]. tel:[phone] Family History Family Member Type Diagnosis Age At Onset No Information Payers Payer name Insurance type Covered alliance party ID Sheela lara(s) [facility] Medicaid [facility] [id number] Social History Type Description Quantity Date Captured [...] Lab Order Comp. Me tabolic Panel (14) ([id number]), Ordered on: Ordered Future Order: Lab Order Lipid Pa sandrine ([id number]), Ordered on: Ordered History Of Present Illness [...] Mental Status Date Cognitive Assessment Orientation - [place] ed to time, place, person, situation. Patient Care Teams Name Effective Dates (start - stop) Status Members No Information
== END 2024-09-27 13:56 | disposition home or self-care (01) ==
LOC: HO.LNP 13:55
PROVIDERS: PCP Internal Medicine; Visit Provider Surgery
DX: L73.8 Other specified follicular disorders (principal); L90.5 Scar conditions and fibrosis of skin
CPT/HCPCS: 11422; 88304

== ENCOUNTER 2024-10-11 14:12 | Outpatient (AMB) | payer MEDICARE, MEDICAID, SELFPAY ==
--- NOTE | 2024-10-11 14:13 | A.OFFVIS_ITS ---
Intake Visit Reasons: 2wk post excision scalp cyst (off proc) Intake Note: This patient presents for suture removal status post excision scalp cyst. Pt c/o; no complaints. Marine Electronics Repairer Required: No Accompanied by: Self / Same As Patient Allergies SEASONAL ALLERGIES Allergy (Mild, Uncoded 10/11/24 14:22) UNKNOWN HPI HPI 2wk post excision scalp cyst (off proc): Details: He underwent excision of the scalp cyst under local anesthesia in the office last 09/28/2024. He tolerated procedure well. He denies significant complaints at this time. [facility] Medical History Scalp cyst Morbid obesity Surgical History Hx of removal of cyst (~09/27/24) Social History Patient Tobacco Use Status: Never used Tobacco Current occupational status: unemployed Review of Systems Const Denies chills and Denies fever(s) Physical Exam Const General: comfortable and no acute distress HEENT Other: Excision site on the scalp is well healed, not infected, sutures intact Assessment & Plan Assessment & Plan (1) Scalp cyst: Code(s): L72.9 - Follicular cyst of the skin and subcutaneous tissue, unspecified Category: Medical Plan: Status post excision. I removed all his sutures. His incisions well healed. His path report shows dermal fibrosis and chronic folliculitis. He can follow up on a p.r.n. basis Coding Level of Care Code Global (05616) Diagnoses Scalp cyst L72.9
--- OUTSIDE RECORDS SUMMARY | 2024-10-11 14:22 | XMS_ITS | Clinical Summary ---
Author Organization [employer] Address [address] [place] [address] Care Team Providers Care Mainspring Strip Inspector Name Role Phone Shauna Grimes MD Primary Care Provide r Allergies No known active allergies Medications * This document contains information received from the source organization and may not represent a complete record from that organization. No known medications Active Problems Problem Noted Date Diagnosed Date [...] creating beats. PLAN: 1. Follow up with [facility] [place]: Not recommended for follow-up 2. Patient goal is to engage in OP therapy 3. Behavioral Recommendations a. Explore deep breathing and grounding b. Contact [facility] behavioral health supports for follow up as needed Health care maintenance 12/04/2022 Erectile dysfunction 11/05/2022 Class 3 severe obesity due t o excess calories without serious comorbidity in adult 11/05/2022 Encounters Date Type Department Care Team Description 10/06/2024 Travel 09/28/2024 Patient Outreach [facility] MEDICINE [facility] [place] [address] Shauna Grimes MD Pre-visit Planning (SDOH screening negative and tobacco screening negative) 09/27/2024 Orders Only GENERIC EXTERNAL DATA DEPARTMENT Provider, Generic External Data 09/15/2024 Orders Only [facility] MEDICINE [facility] [place] [address] Monique Davis RN 09/05/2024 3:00 PM EST Office Visit [facility] [place] [address] All Lebron MD Scalp cyst (Primary Dx) 09/05/2024 Telephone [facility] [place] [address] All Lebron MD 09/05/2024 Travel 08/30/2024 Travel 08/29/2024 Telephone [facility] MEDICINE [facility] [place] [address] Shauna Grimes MD Nurse Triage 08/22/2024 Travel 08/21/2024 Orders Only [facility] [place] [address] Shauna Grimes MD 08/21/2024 Telephone [facility] MEDICINE [facility] [place] [address] Shauna Grimes MD Referral 08/21/2024 Telephone [facility] MEDICINE [address] [place] [address] Shauna Grimes MD Nurse Triage from Last 3 Months Immunizations Name Administration Dates Next Due HPV 9-Valent 11/23/2022, 2,10/28/2021,2020 Influenza Injectable Quadriv alant Preservative Free IIV4 [...] housing situation today? I have kendrabrad early 09/28/[address] you li ve. Do you have problems with any of the following? None of the above 09/28/2024 Food Insecurity Answer Date Recorded Within the past 12 months, y ou worried that your food would run out before you got money to buy more: Never True 09/28/2024 Within the past 12 months,th e food you bought just didn't last and you didn't have enough money to get more: Never True 01/2025 Transportation Answer Date Recorded In the past 12 months, has l ack of transportation kept you from medical appts, meetings, work or from getting things needed for daily living? No 09/28/2024 Utilities Answer Date Recorded In the past 12 months, has t he electric, gas, oil or water company threatened to shut off services in your home? No 09/28/2024 Depression Answer Date Recorded Patient Health Questionnaire-2 Score 1 12/04/2022 Internet Access Answer Date Recorded Internet Access Q1 Yes 09/28/2024 Internet Access Q2 Not on file 09/28/2024 Sex and Gender Information Value Date Recorded [...] 09/05/2024 3:06 PM EST Plan of Treatment Health Maintenance Due Date Last Done Comments Alcohol/Substance Use Screening 2000 Family Planning (PISQ) 11/28/2003 Depression Screening 12/05/2023 12/04/2022, 12/05/19 Hepatitis B Vaccines (3 of 3 - Hep B Twinrix 3-dose series) 12/27/2024 07/29/2024, 06/16/2024 Tobacco Screening 09/05/2025 09/05/2024 SDOH Screening 09/28/2025 09/28/2024 Lipid Panel 12/05/2027 12/04/2022 DTaP/Tdap/Td Vaccines (3 - Td or Tdap) 07/15/2031 07/15/2021, 01/30/2019 Zoster Vaccines (2 of 2) 2038 07/11/2024 RSV Patients and Patients Aged 60 years or older (1 - 1-dose 75+ series) 11/28/2063 HPV Vaccines Completed 11/23/2022, 08/0 08/2021, 10/28/2021, Additional history exists COVID-19 Vaccine Completed [...] Hepatitis A Vaccines Aged Out 07/29/2024, 06/16/20 No longer eligible based on patient's age [...] Procedure Name Priority Date/Time Associated Diagnosis Comments GROSS AND MICROSCOPIC LEVEL 3 Routine 09/27/2024 2:24 PM EST HIV ANTIBODY/ANTIGEN ([place] [facility]) Routine 09/08/2024 HEPATITIS C ANTIBODY ([place] [facility]) Routine 09/08/2024 SYPHILIS ABS ([place] [facility]PH) Routine 09/08/2024 CHLAMYDIA/GONORRHEA - URINE ([place] [facility]) Routine 09/08/2024 CHLAMYDIA/GONORRHEA THROAT SWAB ([place] [facility]) Routine 09/08/2024 LIPID PANEL, STANDARD Routine 12/04/2022 2:35 PM EDT Class 3 severe obesity due to excess calories without serious comorbidity with body mass index (BMI) of 40.0 to 44.9 in adult (CMS/HCC) from Last 3 Months or Most Recently Relevant to Health Maintenance Results * Gross and Microscopic Level 3 (09/27/2024 2:24 PM EST) 09/27/2024 2:24 PM EST 09/28/2024 7:32 AM EST Narrative [facility] - 10/03/2024 3:26 PM EST ----- ------- Name: Darryl Marin ?Age/Sex: 33/M ? : 1990 Unit#: [id number] ?? Attend Dr: Rasta Fernandes MD ?Re09/27/24 ?Status: DEP REF ? Location: HO.LNP ?Disch: ? ----- ------- SPEC : [id number] ?RECD: 09/28/24 ? STATUS: ??SOUT ? REQ NUM: [id number] ? BRAD: 09/27/24-660 ? SUBM DR: Rasta Fernandes MD ? ENTERED: ??09/28/24 ?SP TYPE: Surgical ? OTHR DR: Shauna Grimes MD ? ORDERED: ??Gross Micro L3 ? Diagnosis ?? Skin, scalp, excision: ??Chronic folliculitis with dermal fibrosis; negative for ?? malignancy; multiple additional levels examined. ? Comment: The findings may also represent sequelae from a ruptured cyst. ?Clinical History Scalp cyst ?Microscopic Description Microscopic sections reviewed. ? Material Received ?? Scalp cyst ? Gross Description Received in formalin labeled ?scalp cyst? is a 1.7 x 0.7 cm ellipse of hair-bearing wong- white skin and subcutaneous tissue excised to a maximum depth 0.5 cm. ??The skin surface is slightly puckered and retracted, however, no superficial skin lesions are identified. ??The margins are inked and the specimen is serially sectioned to reveal homogeneous riley-white fibrous dermal tissue and unremarkable subcutaneous fat. ??No distinct cysts, lesions or nodules are identified. ??Cross-sections through the center of the specimen are submitted in cassette A1 and the tip portions are submitted in cassette A2. ??CEDS This case was reviewed intradepartmentally. Copies To: ?? Shauna Grimes MD ?? [facility] ?? [address] ?? [place] [address] ?? [phone] ?? Rasta Fernandes MD ?? [facility] ?? [address] ?? [place] [address] ?? [phone] ? CONTINUED ON NEXT PAGE ----- ------- Name: Darryl Marin ?Age/Sex: 33/M ? : 1990 Unit#: [id number] ?? Attend Dr: Rasta Fernandes MD ?Re09/27/24 ?Status: DEP REF ? Location: HO.LNP ?Disch: ? ----- ------- SPEC : [id number] ?RECD: 09/28/24 ? STATUS: ??SOUT ? REQ NUM: [id number] ? BRAD: 09/27/24-3915 ? SUBM DR: Rasta Fernandes MD ? ENTERED: ??09/28/24 ?SP TYPE: Surgical ? OTHR DR: Shauna Grimes MD ? ORDERED: ??Gross Micro L3 ? ----- ------- Signed (signature on file) Keny Carty MD 10/03/24 1526 ? ----- ------- ? END OF REPORT ? us Generic External Data Provider LAB CYTOLOGY [place] Final Result [facility] [address] [place] [phone] * Chlamydia/Gonorrhea Throat Swab ([facility]) (09/08/2024) Chlamydia Throat Swab Negative Gonorrhea Throat Swab Negative Swab 09/08/2024 Historical Provider LAB MICROBIOLOGY - GENERA L ORDERABLES Final Result * Chlamydia/Gonorrhea, Urine ([facility]) (09/08/2024) Chlamydia, Urine Negative Negative, Indeterminate, None Detected, Invalid, Specimen unsatisfactory for evaluation, Weakly Positive Gonorrhea, Urine Negative Negative, Indeterminate, None Detected, Invalid, Specimen unsatisfactory for evaluation, Weakly Positive Urine 09/08/2024 Result [facility] MD LAB URINE ORDERABLES Yokasta l Result * Syphilis Antibodies (DPH) (09/08/2024) [facility] Syphilis Abs Nonreactive Borderline, Nonreactive, Weakly Reactive, Inconclusive, Specimen unsatisfactory for evaluation Blood Venous blood specimen / Unknown 09/08/2024 Result [facility] MD LAB BLOOD ORDERABLES Yokasta l Result * Hepatitis C Antibody ([facility]) (09/08/2024) [facility] Hepatitis C Ab Nonreactive Blood 09/08/2024 Result [facility] MD LAB BLOOD ORDERABLES [place]asta l Result * HIV Ab/Ag ([facility]) (09/08/2024) [facility] HIV Ag/Ab Nonreactive Blood 09/08/2024 Result [facility] MD LAB BLOOD ORDERABLES Yokasta l Result * (ABNORMAL) Lipid Panel, Standard (12/04/2022 2:35 PM EDT) [facility] Cholesterol, Total 223(H) <200 mg/dL [facility] HDL Cholesterol 61 > OR = 40 mg/dL [facility] Triglycerides 155(H) <150 mg/dL [facility] LDL Cholesterol 133(H) mg/dL (calc) [facility] Comment: Reference range: <100 Desirable range <100 mg/dL for primary prevention; ?? <70 mg/dL for patients with CHD or diabetic patients with > or = 2 CHD risk factors. LDL-C is now calculated using the Mark-Ulloa calculation, which is a validated novel method providing better accuracy than the Friedewald equation in the estimation of LDL-C. Mark SS et al. GUZMAN. 2013;310(19): 9453-2448 (http://education.[employer]/faq/MYO278) Chol/HDLC Ratio 3.7 <5.0 (calc) [facility] Non-HDL Cholesterol 162(H) <130 mg/dL (calc) [employer] Comment: For patients with diabetes plus 1 major ASCVD risk factor, treating to a non-HDL-C goal of <100 mg/dL (LDL-C of <70 mg/dL) is considered a therapeutic option. Blood Venous blood specimen / Unknown 12/04/2022 2:35 PM EDT 12/04/2022 2:36 PM EDT Shauna Rodriguez MD LAB BLOOD ORDERABLES Final Result [facility] [address], [place] [address] [facility] [address] [place] [address] from Last 3 Months or Most Recently Relevant to Health Maintenance Insurance [place] [address] [place] [id number] [facility] ST[facility] Care Teams Mainspring Strip Inspector Relationship Specialty Start Date End Date Shauna Grimes MD [address] [place] [id number] PCP - General Family Medicine 01/20/19
--- OUTSIDE RECORDS SUMMARY | 2024-10-11 14:22 | XMS_ITS | Encounter Summary ---
Author Organization [employer] Address [address] [facility] [address] [place] [address] Care Team Providers Care Dining Room Hostess Name Role Phone Shauna Grimse MD Primary Care Provide r Encounter Details Date Type Department Care Team (Latest Contact Info) Description 10/06/2024 Travel Social History Tobacco Use Types Packs/Day Years Used Date Smoking Tobacco: Never Passive Smoke Exposure: Never Smokeless Tobacco: Never Alcohol Use Standard Drinks/Week Comments Never 0 (1 standard drink = 0.6 oz pur e alcohol) Depression Answer Date Recorded Patient Health Questionnaire-9 Score 8 12/04/2022 Housing Stability Answer Date Recorded What is your housing situation today? I have kendra early 09/28/[address] you [...] as of this encounter Plan of Treatment Not on file documented as of this encounter Visit Diagnoses Not on filedocumented in this encounter Additional Health Concerns Assessment Noted Time PHQ-9 Depression Total Score: 8 12/05/19 23 1:58 PM EDT documented as of this encounter Care Teams Dining Room Hostess Relationship Specialty Start Date End Date Shauna Grimes MD [address] [place] [address] PCP - General Family Medicine 01/20/19 documented as of this encounter
--- OUTSIDE RECORDS SUMMARY | 2024-10-11 14:22 | XMS_ITS | Encounter Summary ---
Author Organization [employer] Address [address] [facility] [address] [place] [address] Care Team Providers Care International Travel Consultant Name Role Phone Shauna Grimes MD Primary Care Provide r Encounter Details Date Type Department Care Team ([facility] Contact Info) Description 08/21/2024 Orders Only [facility] MEDICINE [address] [place] [address] Shauna Grimes MD [address] [place] [address] Social History Tobacco Use Types Packs/Day Years [...] documented as of this encounter Care Teams International Travel Consultant Relationship Specialty Start Date End Date Shauna Grimes MD [address] [place] [address] PCP - General Family Medicine 01/20/19 documented as of this encounter
--- OUTSIDE RECORDS SUMMARY | 2024-10-11 14:22 | XMS_ITS | Encounter Summary ---
Author Organization [employer] Address [address] [facility] [address] [place] [address] Care Team Providers Care Acid Washer Operator Name Role Phone Shauna Grimes MD Primary Care Provide r Reason for Visit * Reason Comments Pre-visit Planning SDOH screening negat nicki and tobacco screening negative Encounter Details Date Type Department Care Team ([facility] st Contact Info) Description 09/28/2024 Patient Outreach [facility] MEDICINE [address] [place] [address] Shauna Grimes MD [address] [place] [address] Pre-visit Planning (SDOH screening negative and tobacco screening negative) Social History Tobacco Use Types Packs/Day Years [...] AM EDT documented as of this encounter Progress Notes * Arlen Young - 09/28/2024 3:24 PM EST CC Arlen placed successful outbound call to patient for pre-visit planning. Patient name and confirmed. Patient confirms appt date and time, and has transportation. Biggest concern for appointment at this time is none Patient advised to bring to appointment a photo id and insurance card. Appropriate screenings completed in anticipation of appointment. documented in this encounter Plan of Treatment Not on file documented as of this encounter Visit Diagnoses Not on filedocumented in this encounter Additional Health Concerns Assessment Noted Time PHQ-9 Depression Total Score: 8 12/05/19 23 1:58 PM EDT documented as of this encounter Care Teams Acid Washer Operator Relationship Specialty Start Date End Date Shauna Grimes MD [address] [place] [address] PCP - General Family Medicine 01/20/19 documented as of this encounter
--- OUTSIDE RECORDS SUMMARY | 2024-10-11 14:22 | XMS_ITS | Encounter Summary ---
Author Organization [employer] Address [address] [facility] [address] [place] [address] Care Team Providers Care Director Talent Acquisition Name Role Phone Shauna Grimes MD Primary Care Provide r Encounter Details Date Type Department Care Team (Late st Contact Info) Description 11/17/2022 Telephone [facility] MEDICINE [address] [place], [place] [phone] Shauna Grimes MD [address] [place] [address] Social History Tobacco Use Types Packs/Day Years [...] on filedocumented in this encounter Care Teams Director Talent Acquisition Relationship Specialty Start Date End Date Shauna Grimes MD [address] [place] [address] PCP - General Family Medicine 01/20/19 documented as of this encounter
--- OUTSIDE RECORDS SUMMARY | 2024-10-11 14:22 | XMS_ITS | Continuity of Care Document ---
Author Organization [employer] Address [address] [place] [address] Phone Care Team Providers Care Social Insurance Adviser Name Role Phone Shadowens WEEKEND ANCHOR, Bebe Unavailable Unavailab le Allergies, Adverse Reactions, [...] W/OPTIC OFFICE/OUTPATIENT VISIT, EST Medical [employer] ENAMEL APPLIER ROUTINE VENIPUNCTURE ASSAY OF AMYLASE ASSAY OF LIPASE GLYCOSYLATED HEMOGLOBIN TEST COMPLETE CBC W/AUTO DIFF WBC LIPID PANEL COMPREHEN METABOLIC PANEL OFFICE/OUTPATIENT VISIT, EST Medical [employer] [facility] ENAMEL APPLIER TELEHEALTH VISIT, EST [facility] ENAMEL APPLIER OFFICE/OUTPATIENT VISIT, EST Phenergan (Promethazine hcl) injection J Inj Administration Non-antineoplastics J Medical [employer] ENAMEL APPLIER TELEHEALTH VISIT, EST [facility] PHONE E/M PHYS/QHP 5-10 MIN OFFICE/OUTPATIENT [...] Providers Copied on Encounter OFFICE[facility], [facility] [address], [place], [id number] , [place] [phone] [facility] Medical Clearance (chief complaint) Flu-like symptomsViral illnessElevated liver enzymesElevated bilirubinDyslipi demia 2 Shadowens Bebe. [address] [place], [address], [place]. tel:[phone] [facility], [address], [place], [id number] , [place] [phone] [facility] Medical Elevated liver enzymesElevated bilirubinHypertr iglyceridemia 2 Shadowens Bebe. [address] [place], [address], [place]. tel:[phone] OFFICE/OUTPAT IENT VISIT, [facility] [address], [place], [id number] , [place] [phone] [facility] Medical Med refill (chief complaint) Recurrent pancreatitisScre ening for lipid disorders 2 Shadowens Bebe. [address] [place], [address], [place]. tel:[phone] TELEHEALTH [facility]ISIT, [facility], [address], [place], [id number] , [place] [phone] Telehealth [facility] exposure to covid (chief complaint) COVID-19 virus infection 2 Shadowens Bebe. [address] [place], [address], [place]. [phone] OFFICE/OUTPAT IENT VISIT, [facility], [facility] [address], [place], [id number] , [place] tel:[phone] [facility] Medical Vomiting (chief complaint) Recurrent pancreatitis 2 Cookie Tubbs. [address] , [place], [place], [id number], [place]. [phone] TELEHEALTH VISIT, [facility], [facility] [address], [place], [id number] , [place] tel:[phone] [facility] Medical ear infection (chief complaint) Right ear pain 0 Irma Fu. [address], [place], [id number], [place]. tel:[phone] OFFICE/OUTPAT IENT VISIT, [facility], [facility]., [address], [place], [address] , [place] tel: [phone] [facility] Medical Seizure (chief complaint) Nonintractable epilepsy without status epilepticus, unspecified epilepsy type 8 Alma Terry APRN,[facility]- . [address] [facility] , [place], [place], [id number], [place]. tel:[phone] Family History Family Member Type Diagnosis Age At Onset No Information Payers Payer name Insurance type Covered republican ID Sheela lara(s) [facility] Medicaid [facility] [id number] Social History Type Description Quantity Date Captured [...] Lab Order Comp. Me tabolic Panel (14) ([id number]), Ordered on: Ordered Future Order: Lab Order Lipid Pa sandrine ([id number]), Ordered on: Ordered History Of Present Illness [...] Mental Status Date Cognitive Assessment Orientation - Chardon ed to time, place, person, situation. Patient Care Teams Name Effective Dates (start - stop) Status Members No Information
--- OUTSIDE RECORDS SUMMARY | 2024-10-11 14:22 | XMS_ITS | Continuity of Care Document ---
Author Organization [facility] Address [address] [place] [address] Phone Care Team Providers Care Can Coverer Name Role Phone Edson SHANNON, Estrella Unavailable Unavailable Allergies, Adverse Reactions, Alerts Substance Reaction Status Criticality No Known allergies Procedures Procedure Date OFFICE VISIT NEW PT INTERMEDIATE 2009 Advance Directives Directive Yes / No Effective Date File Name No Information Encounters Encounter Description Practice Location Reason(s) For Visit Diagnoses Date Provider Providers Copied on Encounter [facility], [address] [place], [place], [id number] , tel:[phone] [facility] No Information Dec-0 1-201 0 Edson De La Rosa. [address] [place], [address]. tel:[phone] OFFICE VISIT NEW PT INTERMEDIATE [facility], [address] [place], [place], [address] , tel:[phone] [facility] establish care (chief complaint) AniridiaObesityOb esity Sep-0 3-201 0 Rahat Crandall. [address] [place], [place], [address], [place]. tel:[phone] Family History Family Member Type Diagnosis Age At Onset Problem (finding) Family history of Diabetes mellitus Problem (finding) Family history of hyper tension Maternal grandfather Problem (finding) stroke Father Problem (finding) aniridia Father Problem (finding) raised blood lipids Immunizations Vaccine Date Status Comments Td (7 yrs and older) administered Source: New Immunization Record Payers Payer name Insurance type Covered green party ID Authoriza tion(s) No Information Social [...]
--- OUTSIDE RECORDS SUMMARY | 2024-10-11 14:22 | XMS_ITS | Encounter Summary ---
Author Organization [employer] Address [address] [facility] 7t [place] [address] Care Team Providers Care Cattle Sticker Name Role Phone Shauna Grimes MD Primary Care Provide r Encounter Details Date Type Department Care Team ([facility] st Contact Info) Description 09/27/2024 Orders Only GENERIC EXTERNAL DATA DEPARTMENT Provider, Generic External Data Social History Tobacco Use Types Packs/Day Years [...] on file documented as of this encounter Procedures Procedure Name Priority Date/Time Associated Diagnosis Comments GROSS AND MICROSCOPIC LEVEL 3 Routine 09/27/2024 2:24 PM EST documented in this encounter Results * Gross and Microscopic Level 3 (09/27/2024 2:24 PM EST) 09/27/2024 2:24 PM EST 09/28/2024 7:32 AM EST [facility] - 10/03/2024 3:26 PM EST ----- ------- Name: Darryl Marin ?Age/Sex: 33/M ? : 1990 Unit#: [id number] ?? Attend Dr: Rasta Fernandes MD ?Re09/27/24 ?Status: DEP REF ? Location: HO.LNP ?Disch: ? ----- ------- SPEC : [id number] ?RECD: 09/28/24 ? STATUS: ??SOUT ? REQ NUM: [id number] ? BRAD: 09/27/24 ? SUBM DR: Rasta Fernandes MD ? [...] Copies To: ?? Shauna Grimes MD ?? [facility] ?? [address] ?? [place] [address] ?? [phone] ?? Rasta Fernandes MD ?? [facility] ?? [address] ?? [place] [address] ?? [phone] ? CONTINUED ON NEXT PAGE ----- ------- Name: Darryl Marin ?Age/Sex: 33/M ? : 1990 Unit#: [id number] ?? Attend Dr: Rasta Fernandes MD ?Re09/27/24 ?Status: DEP REF ? Location: HO.LNP ?Disch: ? ----- ------- SPEC : [id number] ?RECD: 09/28/24 ? STATUS: ??SOUT ? REQ NUM: [id number] ? BRAD: 09/27/24-1163 ? SUBM DR: Rasta Fernandes MD ? ENTERED: ??09/28/24 ?SP TYPE: Surgical ? OTHR : Shauna Grimes MD ? ORDERED: ??Gross Micro L3 ? ----- ------- Signed (signature on file) Keny Carty MD 10/03/24 3996 ? ----- ------- ? END OF REPORT ? us Generic External Data Provider LAB CYTOLOGY ORDE RABLES Final Result [facility] [address] [place] [address] [phone] documented in this encounter Visit Diagnoses Not on filedocumented in this encounter Additional Health Concerns Assessment Noted Time PHQ-9 Depression Total Score: 8 12/05/19 23 1:58 PM EDT documented as of this encounter Care Teams Cattle Sticker Relationship Specialty Start Date End Date Shauna Grimes MD [address] [place] [address] PCP - General Family Medicine 01/20/19 documented as of this encounter
--- OUTSIDE RECORDS SUMMARY | 2024-10-11 14:22 | XMS_ITS | Encounter Summary ---
Author Organization [employer] Address [address] 7t [place] [address] Care Team Providers Care County Home Demonstrator Name Role Phone Shauna Grimes MD Primary Care Provide r Encounter Details Date Type Department Care Team ([facility] st Contact Info) Description 09/15/2024 Orders Only [facility] [address] [place] [address] Monique Davis RN Social History Tobacco Use [...] Results * HIV Ab/Ag ([place] [facility]) (09/08/2024) Pathologist [facility] HIV Ag/Ab Nonreactive Blood 09/08/2024 Historical Provider LAB BLOOD ORDERABLES Yokasta l Result * Hepatitis C Antibody ([place] [facility]) (09/08/2024) Pathologist [facility] Hepatitis C Ab Nonreactive Blood 09/08/2024 Historical Provider LAB BLOOD ORDERABLES Yokasta l Result * Syphilis Antibodies (DPH) (09/08/2024) Pathologist [facility] Syphilis Abs Nonreactive Borderline, Nonreactive, Weakly Reactive, Inconclusive, Specimen unsatisfactory for evaluation Blood Venous blood specimen / Unknown 09/08/2024 Historical Provider MD LAB BLOOD ORDERABLES Yokasta l Result * Chlamydia/Gonorrhea, Urine ([place] [facility]) (09/08/2024) Chlamydia, Urine Negative Negative, Indeterminate, None Detected, Invalid, Specimen unsatisfactory for evaluation, Weakly Positive Gonorrhea, Urine Negative Negative, Indeterminate, None Detected, Invalid, Specimen unsatisfactory for evaluation, Weakly Positive Urine 09/08/2024 Historical Provider MD LAB URINE ORDERABLES Yokasta l Result * Chlamydia/Gonorrhea Throat Swab ([place] [facility]) (09/08/2024) Chlamydia Throat Swab Negative Gonorrhea Throat Swab Negative Swab 09/08/2024 [facility] Provider LAB MICROBIOLOGY - GENERA L ORDERABLES Final Result documented in this encounter Visit Diagnoses Not on filedocumented in this encounter Additional Health Concerns Assessment Noted Time PHQ-9 Depression Total Score: 8 12/05/19 23 1:58 PM EDT documented as of this encounter Care Teams County Home Demonstrator Relationship Specialty Start Date End Date Shauna Grimes MD [address] [place] [address] PCP - General Family Medicine 01/20/19 documented as of this encounter
== END 2024-10-11 14:28 | disposition home or self-care (01) ==
PROVIDERS: PCP Internal Medicine; Visit Provider Surgery
DX: L72.9 Follicular cyst of the skin and subcutaneous tissue, unspecified (principal)
CPT/HCPCS: 99024

== ENCOUNTER → 2024-10-11 14:12 | Outpatient (BNVA) | payer MEDICARE, MEDICAID, SELFPAY | PROVIDERS: PCP Internal Medicine; Visit Provider Surgery | DX: Z48.817 Encounter for surgical aftercare following surgery on the skin and subcutaneous tissue (principal); Z98.890 Other specified postprocedural states | CPT/HCPCS: 99212 ==

== ENCOUNTER 2025-05-06 07:42 | Emergency (ER) | payer MEDICARE, MEDICAID, SELFPAY ==
--- OUTSIDE RECORDS SUMMARY | 2010-07-23 10:50 | XMS_ITS | Continuity of Care Document ---
Author Organization [facility] Address [address] [place] [address] Phone Care Team Providers Care Parish Visitor Name Role Phone Edson SHANNON, Estrella Unavailable Unavailable Allergies, Adverse Reactions, Alerts Substance Reaction Status Criticality No Known allergies Advance Directives Directive Yes / No Effective Date File Name No Information Encounters Encounter Description Practice Location Reason(s) For Visit Diagnoses Date Provider [facility], [address] [place], [place], [id number], tel:[phone] [facility] No Information Edson De La Rosa. [address] [place], [address]. tel:[phone] [facility], [address] [place], [place], [id number], tel:[phone] [facility] establish care (chief complaint) AniridiaObesityObesity Rahat Crandall. [address], [place], [id number], [place]. tel:[phone] Family History Family Member Type Diagnosis Age At Onset Problem (finding) Family history of Diabetes mellitus Problem (finding) Family history of hyper tension Maternal grandfather Problem (finding) stroke Father Problem (finding) aniridia Father Problem (finding) raised blood lipids Immunizations Vaccine Date Status Comments Td (7 yrs and older) administered Source: New Immunization Record Payers Payer name Insurance type Covered democrat ID Authoriza tion(s) No Information Social History Type Description Quantity Date Captured Comments Sex Male Smoking Status No Information Chief Complaint And Reason For Visit No Information Plan Of Treatment Date Type Action Status Future Order: Lab Order CBC (W D IFF AND PLATELET) (1979), Appointment on: Ordered Future Order: Lab Order CHOLESTE ROL (1005), Appointment on: Ordered Future Order: Lab Order COMPREHE NSIVE METABOLIC PANEL (977), Appointment on: Ordered Future Order: Lab Order DIRECT L DL (1209), Appointment on: Ordered Future Order: Lab Order HDL (1111), Appoi ntment on: Ordered Future Order: Lab Order TRIGLYCE RIDE (1006), Appointment on: Ordered Future Order: Lab Order TSH, 3RD GENERATION (1902), Appointment on: Ordered History Of Present Illness Encounter Date Complaint History Of Prese nt Illness No Information Instructions Date Instruction Additional Infor mation No Information Assessments Type Assessment Date No Information
--- OUTSIDE RECORDS SUMMARY | 2022-06-23 10:57 | XMS_ITS | Continuity of Care Document ---
Author Organization [facility] Address [address] [place] [address] Phone Care Team Providers Care Metal Hardener Name Role Phone [employer] AIR LAUNCH WEAPONS TECHNICIAN, Bebe Unavailable Unavailab le Allergies, Adverse Reactions, Alerts Substance Reaction Status Criticality No Known Allergies Active No Inform ation Medications Medication Instructions Dosage Effective Dates (start - stop) Status Comments ondansetron HCl 4 mg tablet take 1 tablet by oral route 3 times every day as needed for nausea 4 MG - Active acetaminophen 300 mg-codeine 30 mg tablet take 1 tablet by oral route every 4 hours as needed 1 tablet - Active Procedures Procedure Date SPECIMEN HANDLING INFLUENZA ASSAY W/OPTIC OFFICE/OUTPATIENT VISIT, EST Medical [facility] CUPOLA PATCHER HELPER ROUTINE VENIPUNCTURE ASSAY OF AMYLASE ASSAY OF LIPASE GLYCOSYLATED HEMOGLOBIN TEST COMPLETE CBC W/AUTO DIFF WBC LIPID PANEL COMPREHEN METABOLIC PANEL OFFICE/OUTPATIENT VISIT, EST Medical [facility] CUPOLA PATCHER HELPER TELEHEALTH VISIT, EST [facility] Enc CUPOLA PATCHER HELPER OFFICE/OUTPATIENT VISIT, EST Phenergan (Promethazine hcl) injection J Inj Administration Non-antineoplastics J Medical [facility] Enc CUPOLA PATCHER HELPER TELEHEALTH VISIT, EST [facility] PHONE E/M PHYS/QHP 5-10 MIN OFFICE/OUTPATIENT VISIT, NEW Results Test Name Date and Time Measure Units Reference Range Abnormal Flag Status Commen ts Panel Description: Influenza Assay W/optic Yokasta l Rapid Infulenza A NEG Negative Final RF Rapid Influenza B NEG Negative Final Advance Directives Directive Yes / No Effective Date File Name No Information Encounters Encounter Description Practice Location Reason(s) For Visit Diagnoses Date Provider Providers Copied on Encounter OFFICE[facility]ISIT, [facility], [address], [place], [id number] , tel:[phone] [facility] Medical Clearance (chief complaint) Flu-like symptomsViral illnessElevated liver enzymesElevated bilirubinDyslipi demia [address] Shadowens [address]be[address], [place], [address], [place]. tel:[phone] [facility], [address], [place], [id number] , tel:[phone] [facility] Medical Elevated liver enzymesElevated bilirubinHypertr iglyceridemia [address] Shadowens [address], [place], [address], [place]. tel:[phone] OFFICE/OUTPAT IENT VISIT, [facility], [address], [place], [id number] , [phone] [facility] Medical Med refill (chief complaint) Recurrent pancreatitisScre ening for lipid disorders [address]ens [address], [place], [address], [place]. tel:[phone] TELEHEALTH VISIT, [facility], [address], [place], [id number] , [place] tel:[phone] Telehealth [facility] exposure to covid (chief complaint) COVID-19 virus infection [address], [place], [address], [place]. [phone] OFFICE/OUTPAT IENT VISIT, [facility], [facility] [address], [place], [id number] , [place] [phone] [facility] Medical Vomiting (chief complaint) Recurrent pancreatitis 2 Cookie Amesatinder. [address] , [place], [place], [id number], [place]. tel:[phone] TELEHEALTH VISIT, [facility], [facility]., [address], [place], [id number] , [place] tel:[phone] 03 [facility] Medical ear infection (chief complaint) Right ear pain 0 Irma Fu. [address], [place], [id number], [place]. tel:[phone] OFFICE/OUTPAT IENT VISIT, [facility], [facility] [address], [place], [id number] , [place] tel: [phone] [facility] Medical Seizure (chief complaint) Nonintractable epilepsy without status epilepticus, unspecified epilepsy type 8 Alma Terry APRN,[facility]- . [address] , [place], [place], [id number], [place]. tel:[phone] Family History Family Member Type Diagnosis Age At Onset No Information Payers Payer name Insurance type Covered libertarian ID Sheela lara(s) [facility] Medicaid [facility] [id number] Social History Type Description Quantity Date Captured Comments Alcohol Use Details No Caffeine Use Details No Tobacco Use Status Smoking Status Current every day smoker Non-Smoking Tobacco Use Details cigarettes: No Details Available cigarettes: No Details Available Sex Male Sexual Orientation Straight or heterosexual Gender Identity Male Vital Signs Date / Time: Height Weight BMI Pulse Rate Blood Pressure Temperature Respiratory Rate Body Surface Area Head Circumference Head Circ. Percentile Wt./Stas. Percentile BMI percentile Pulse Ox Inhaled Ox 3:01 PM 65.00 in 60.419 kg (133.20 lbs) 22.1 7 kg/m eter (2) 88 /min 137/97 mm[Hg] 98.60 F 18 /min 1.66 meter(2) 98 % Chief Complaint And Reason For Visit From encounter dated '06/23/2022 14:57'. Clearance (chief complaint). Description: Pt is here to get cleared to go back to work. Complains of fever and headache for 2 days. Reports that symptoms have resolved. Reason For Referral Reason For Referral No Information Plan Of Treatment Date Type Action Status Referral Ordered: Gastroenterology (related to Recurrent pancreatitis) ordered Referral Ordered: Referrals: Gastroenterology. Evaluate and treat ordered Referral Ordered: Referrals: Neurology. Evaluate and treat Appointment date/timeframe: 09/29/2018 ordered Patient Education Epilepsy: Care Instruct ions completed Future Order: Lab Order Comp. Me tabolic Panel (14) ([id number]), Ordered on: Ordered Future Order: Lab Order Lipid Pa sandrine ([id number]), Ordered on: Ordered History Of Present Illness Encounter Date Complaint History Of Prese nt Illness Clearance Pt is here to ge t cleared to go back to work. Complains of fever and headache for 2 days. Reports that symptoms have resolved. Med refill The symptoms are reported as being severe. The symptoms occur constantly. All medication due to Prancritist. Been vomiting since out of meds. exposure to covid Vomiting Onset: 4 Days. P ain scale: 5/10. The location is midline. The patient reports radiation to the back. The quality of the pain is colicky and sharp. These symptoms occur after meals. These symptoms do not occur after bowel movement, on urination and with recent antibiotic use. Aggravating factors include food, water and vomiting. The patient denies relieving factors. Associated symptoms include back pain, bloating, change in appetite, nausea and vomiting. Pertinent negatives include blood in stool, constipation, diaphoresis, diarrhea, dizziness, dyspnea, eructation, fever, flank pain, flatulence, heartburn, hematuria, jaundice, lightheadedness, myalgia, rash and weight gain. ear infection The symptoms beg an 4 months ago. The location is right ear. Complains of ear infection since November, constant pain 6/10. Per patient unable to hear.Patients gives verbal consent for telehealth. Seizure Onset was 2 year s ago. The problem is recurrent 3 time(s)/year. The seizure was witnessed by his Co-Workers. The location of seizure focus is unknown. andUnknown. Associated symptoms include staring and unresponsiveness. Pertinent negatives include altered level of consciousness, aura, automatic behaviors, drooling, fecal incontinence, focal neurological deficit, gustatory disturbance, lip smacking, olfactory disturbance, picking at objects, tongue biting and urinary incontinence. Additional information: He is not driving. Functional Status Date Functional Assessmen t Pain Score 0/10 Instructions Date Instruction Additional Infor mation Your illness is most likely viral. Push the fluids, get plenty of rest. Should resolve within 10 days total, antibiotics not recommended. Related to Viral illness May take Tylenol or ibuprofen for fever/pain. Push the fluids. Get plenty of rest. Report to the ER for shortness of breath, uncontrolled/high fevers, chest pain or pressure, bluish lips or face, an/or confusion.Test positive for COVID: end isolation after 5 days if you have been fever free without medication (Tylenol/Ibuprofen) but wear a mask for 5 additional days. Related to COVID-[address] UNTIL Y OU ARE MEDICALLY CLEARED BY NEUROLOGY. Related to Nonintractable epilepsy without status epilepticus, unspecified epilepsy type Assessments Type Assessment Date assessment Flu-like symptoms assessment Viral illness assessment Elevated liver enzymes 22 assessment Elevated bilirubin assessment Dyslipidemia Mental Status Date Cognitive Assessment Orientation - [place] ed to time, place, person, situation. Patient Care Teams Name Effective Dates (start - stop) Status Members No Information
[2025-05-06 07:54] VITALS: BP 161/83; PULSE 102; RESP 16; TEMP 36.5; O2SAT 95; BMI 30.1
--- OUTSIDE RECORDS SUMMARY | 2025-05-06 09:03 | XMS_ITS | Encounter Summary ---
Author Organization [facility] Address [address] [place] [address] Phone Care Team Providers Care Color Checker Roving Or Yarn Name Role Phone Pcp, Unknown Primary Care Provider Unavailabl e Shauna Grimes MD Primary Care Provider Encounter Details Date Type Department Care Team (Late st Contact Info) Description 10/30/2019 Telephone [facility] [address] [place] [address] Margarita Alcantara MD, PhD, MPH [address] [place] [phone] [email or web address] Social History Tobacco Use Types Packs/Day Years Used Date Smoking Tobacco: Never Smokeless Tobacco: Never Alcohol Use Standard Drinks/Week Comments Yes 0 (1 standard drink = 0.6 oz pur e alcohol) seldom Sex and Gender Information Value Date Recorded Sex Assigned at Male 04/24/2021 11:38 AM EDT Legal Sex Male 11:50 AM EDT Gender Identity Male 04/24/2021 11:38 AM EDT Sexual Orientation Straight 04/24/2021 11 :38 AM EDT documented as of this encounter Plan of Treatment Not on file documented as of this encounter Visit Diagnoses Not on filedocumented in this encounter Care Teams Color Checker Roving Or Yarn Relationship Specialty Start Date End Date Pcp, Unknown PCP - General 10/05/19 04/23/21 Shauna Grimes MD [address] [place] [address] PCP - General Internal Medicine 04/24/21 documented as of this encounter Additional Source Comments The information contained in this document represents components of the legal health record. It is not the complete legal health record.[facility]
--- OUTSIDE RECORDS SUMMARY | 2025-05-06 09:03 | XMS_ITS | Encounter Summary ---
Author Organization [employer] Address [address] [facility] 7t [place] [address] Care Team Providers Care Paleology Professor Name Role Phone Shauna Grimes MD Primary Care Provide r Encounter Details Date Type Department Care Team ([facility] st Contact Info) Description 08/21/2024 Orders Only [facility]INE [address] [place] [address] Shauna Grimes MD [address] [place] [address] Social History Tobacco Use Types Packs/Day Years [...] Care Team (Late st Contact Info) Description 06/18/2025 2:30 PM EDT Office Visit [facility] [address] [place] [address] Shauna Grimes MD [address] [place] [address] documented as of this encounter Visit Diagnoses Not on filedocumented in this encounter Additional Health Concerns Assessment Noted Time PHQ-9 Depression Total Score: 8 12/05/19 23 1:58 PM EDT documented as of this encounter Care Teams Paleology Professor Relationship Specialty Start Date End Date Shauna Grimes MD [address] [place] [address] PCP - General Family Medicine 01/20/19 documented as of this encounter
--- OUTSIDE RECORDS SUMMARY | 2025-05-06 09:03 | XMS_ITS | Encounter Summary ---
Author Organization [facility] Address [address] [place] [address] [place] [address] Phone Care Team Providers Care Barker Operator Name Role Phone Pcp, Requested Primary Care Provider Unavailabl e Pcp, Unknown Primary Care Provider Unavailabl e Shauna Grimes MD Primary Care Provider Encounter Details Date Type Department Care Team ([facility] Contact Info) Description 09/21/2019 Telephone [facility] [address] [place] [address] Margarita Alcantara MD, PhD, MPH [address] [place] [phone] [email or web address] Social History Tobacco Use Types Packs/Day [...] on filedocumented in this encounter Care Teams Barker Operator Relationship Specialty Start Date End Date Pcp, Requested PCP - General 12/26/18 10/04/19 Pcp, Unknown PCP - General 10/05/19 04/23/21 Shauna Grimes MD [address] [place] [address] PCP - General Internal Medicine 04/24/21 documented as of this encounter Additional Source Comments The information contained in this document represents components of the legal health record. It is not the complete legal health record.[facility]
--- OUTSIDE RECORDS SUMMARY | 2025-05-06 09:03 | XMS_ITS | Encounter Summary ---
Author Organization [employer] Address [address] [facility] 7t [place] [address] Care Team Providers Care Petroleum Laboratory Technician Name Role Phone Shauna Grimes MD Primary Care Provide r Reason for Visit * Reason Onset Date Comments Medication Question 05/02/2025 Encounter Details Date Type Department Care Team ([facility] st Contact Info) Description 05/02/2025 Telephone [facility] [address] [place] [address] Shauna Grimes MD [address] [place] [address] Medication Question Social History Tobacco Use Types Packs/Day Years [...] encounter Miscellaneous Notes * Telephone Encounter - Charlotte Dixon RN - 05/02/2025 10:20 AM EDT TC placed to patient [phone] in regards to below message. Patient reports he was [facility] and was given cream for a rash which he researched and it is for a fungal rash. Patient was also given abx eye drops for pink eye however it is for a bacterial pink eye. Patient inquiring if he was given the wrong drops and should have been given fungal pink eye drops. Patient reports he mayhave fungal pink eye d/t having a fungal rash near his ear and the eye affected being on the same side of his face. Patient informed fungal pink eye infections are rare and the symptoms are usually more severe such as blurry vision and light insensitivity while pink eye usually causes eye redness, i tchiness, discharge and crust in the mornings. Patient informed based on OV note, symptoms aligned more with bacterial pink eye. Patient advised to continue abx drops as Rx'd and if s/s continue uponcompletion or worsen to return to [facility] for re-evaluation. Patient agreeable to POC. Patient to f/u PRN. * Telephone Encounter - Marciayesicaalexandr Keanu - 05/02/2025 9:39 AM EDT Tc from pt requesting a call back regarding prior message Contact pt at [phone] * Telephone Encounter - Charlotte Dixon RN - 05/02/2025 9:32 AM EDT TC placed to patient [phone] in regards to below message. Patient did not answer, RN left requesting CB to red team nurses. Patient to f/u PRN. * Telephone Encounter - Michelle Colunga - 05/02/2025 8:03 AM EDT Tc from pt stating he was seen in [facility] yesterday and was prescribed eye drops , pt thinks he was prescribed the wrong eye drops . He is requesting for eye drops for fungal pink eye Contact pt at [phone] documented in this encounter Plan of Treatment Upcoming Encounters Date Type Department Care Team (Late st Contact Info) Description 06/18/2025 2:30 PM EDT Office Visit [facility] [address] [place] [address] Shauna Grimes MD [address] [place] [address] documented as of this encounter Visit Diagnoses Not on filedocumented in this encounter Additional Health Concerns Assessment Noted Time PHQ-9 Depression Total Score: 8 12/05/19 23 1:58 PM EDT documented as of this encounter Care Teams Petroleum Laboratory Technician Relationship Specialty Start Date End Date Shauna Grimes MD [address] [place], [place] [phone] PCP - General Family Medicine 01/20/19 documented as of this encounter
--- OUTSIDE RECORDS SUMMARY | 2025-05-06 09:03 | XMS_ITS | Encounter Summary ---
Author Organization [employer] Address [address] [facility] 7t [place] [address] Care Team Providers Care Content Editor Name Role Phone Shauna Grimes MD Primary Care Provide r Encounter Details Date Type Department Care Team ([facility] Contact Info) Description 11/17/2022 Telephone [facility] [address] [place] [phone] Shauna Grimes MD [address] [place] [phone] Social History Tobacco Use Types Packs/Day Years [...] Upcoming Encounters Date Type Department Care Team ([facility] Contact Info) Description 06/18/2025 2:30 PM EDT Office Visit [facility] [address] [place] [phone] Shauna Grimes MD [address] [place] [phone] documented as of this encounter Visit Diagnoses Not on filedocumented in this encounter Care Teams Content Editor Relationship Specialty Start Date End Date Shauna Grimes MD [address] [place] [address] PCP - General Family Medicine 01/20/19 documented as of this encounter
--- OUTSIDE RECORDS SUMMARY | 2025-05-06 09:03 | XMS_ITS | Clinical Summary ---
Author Organization [facility] Address [address] [facility] [address] [place] [address] Phone Care Team Providers Care Mandate Retail Service Merchandiser Name Role Phone Shauna Grimes MD Primary Care Provider Allergies No known active allergies Medications * This document contains information received from the source organization and may not represent a complete record from that organization. multivitamin (MULTIPLE VITAMINS ORAL) Take by mouth. Active docosahexanoic acid/epa (FISH OIL ORAL) Take by mouth. Active amino ac/whey prot conc, isol (WHEY PROTEIN ORAL) Take by mouth. Active HYDROXYZINE HCL ORAL Take by mouth. Takes rarely Active Active Problems No known active problems Immunizations Immunization Administration Dates Next Due COVID-19 (Pre-06/14) Moderna Vaccine, mRNA, PF 0 10/24/2020 Family History Medical History Relation Comments Cataracts Mother Relation Status Comments Brother Alive Father Alive Mother Social History Tobacco Use Types Packs/Day Years Used Date Smoking Tobacco: Never Smokeless Tobacco: Never Alcohol Use Standard Drinks/Week Comments Yes 0 (1 standard drink = 0.6 oz pur e alcohol) seldom Education Answer Date Recorded Are you interested in more education? Not on cali e 12/18/2022 Are you concerned about learning? Not on file 12/18/2022 No 12/18/2022 No 12/18/2022 Digital Access Answer Date Recorded No 01/19/2023 No 01/19/2023 Reliable internet access at home? Not on file 01/19/2023 Device with a working camera? Not on file Intimate Partner Violence Answer Date R ecorded Are you denied basic needs s uch as food, clothing, or medical care? No 07/10/2024 In the past 12 months have y ou been in a relationship with a person who hurts, threatens, or tries to control you? No 07/10/2024 Are you denied basic needs s uch as food, clothing, or medical care? No 07/10/2024 In the past 12 months have y ou been in a relationship with a person who hurts, threatens, or tries to control you? No 07/10/2024 Sex and Gender Information Value Date Recorded Sex Assigned at Male 04/24/2021 11:38 AM EDT Legal Sex Male 11:50 AM EDT Gender Identity Male 04/24/2021 11:38 AM EDT Sexual Orientation Straight 04/24/2021 11 :38 AM EDT Last Filed Vital Signs Vital Sign Reading Time Taken Comments Blood Pressure 135/92 07/10/2024 9:39 PM EST Pulse 86 07/10/2024 9:39 PM EST Temperature 36.5 C (97.7 F) 07/10/2024 9:39 PM EST Respiratory Rate 19 07/10/2024 9:39 PM EST Oxygen Saturation 97% 07/10/2024 9:39 PM EST Inhaled Oxygen Concentration - - Weight 125.7 kg (277 lb 1.9 oz) 07/10/2024 6:29 PM EST Height 175.3 cm (5' 9 ) 07/10/2024 6:29 PM EST Body Mass Index 40.92 07/10/2024 6:29 PM EST Plan of Treatment Health Maintenance Due Date Last Done Comments DEPRESSION SCREENING 2000 HEPATITIS C SCREENING 2006 HIV ONE-TIME SCREENING (18-6 5 YEARS) 2006 HEPATITIS A VACCINES (1 of 2 - Risk 2-dose series) 11/28/2007 SCREENING FOR DIABETES 11/28/2023 INFLUENZA VACCINE (#1) 2025 2, 04/14/2019 COVID-19 VACCINE (2 - 2024-2 6 season) 2025 10/24/2020 LIPID PANEL 12/05/2027 12/04/2022 Adult Td,Tdap Booster 07/15/2031 07/15/2021 , 01/30/2019 SMOKING STATUS SCREENING (On ce After 26 Yrs) Completed 07/10/2024 HIB VACCINES Aged Out No longer eligi ble based on patient's age to complete this topic MENINGOCOCCAL VACCINES (ACWY) Aged Out No longer eligible based on patient's age to complete this topic MENINGOCOCCAL VACCINES (B) Aged Out N o longer eligible based on patient's age to complete this topic PNEUMOCOCCAL VACCINES (0-49 years) Aged Out No longer eligible b ased on patient's age to complete this topic Medical Devices Not on file Insurance MEDICARE PART A & B [facility] MEDICARE PART A & B [facility] MEDICARE PART A & B [facility] MEDICARE PART A & B [facility] MEDICARE PART A & B [facility] MEDICARE [facility] A & B [facility] MEDICARE PART A & B [facility] MEDICARE PART A & [facility] B [facility] Care Teams Mandate Retail Service Merchandiser Relationship Specialty Start Date End Date Shauna Grimes MD [address] [place] [address] PCP - General Internal Medicine 04/24/21 Additional Source Comments The information contained in this document represents components of the legal health record. It is not the complete legal health record.[facility]
--- OUTSIDE RECORDS SUMMARY | 2025-05-06 09:03 | XMS_ITS | Encounter Summary ---
Author Organization [facility] Address [address] [place] [address] [place] [phone] Phone Care Team Providers Care Marketing Segment Manager Name Role Phone Pcp, Requested Primary Care Provider Unavailabl e Pcp, Unknown Primary Care Provider Unavailabl e Shauna Grimes MD Primary Care Provider Encounter Details Date Type Department Care Team ([facility] Contact Info) Description 09/21/2019 Telephone [facility] [address] [place] [address] Margarita Alcantara MD, PhD, MPH [address] [place] [phone] [email or web address] Social History Tobacco Use Types Packs/Day [...] on filedocumented in this encounter Care Teams Marketing Segment Manager Relationship Specialty Start Date End Date Pcp, Requested PCP - General 12/26/18 10/04/19 Pcp, Unknown PCP - General 10/05/19 04/23/21 Shauna Grimes MD [address] [place] [address] PCP - General Internal Medicine 04/24/21 documented as of this encounter Additional Source Comments The information contained in this document represents components of the legal health record. It is not the complete legal health record.[facility]
--- OUTSIDE RECORDS SUMMARY | 2025-05-06 09:03 | XMS_ITS | Encounter Summary ---
Author Organization [facility] Address [address] [facility] [address] [place] [phone] Phone Care Team Providers Care Lab Aid Name Role Phone Shauna Grimes MD Primary Care Provider Encounter Details Date Type Department Care Team (Late st Contact Info) Description 03/20/2022 Procedure Pass [facility] PERIOP DEPT [address] [place] [address] Social History Tobacco Use Types Packs/Day Years [...] on filedocumented in this encounter Care Teams Lab Aid Relationship Specialty Start Date End Date Shauna Grimes MD [address] [place] [id number] PCP - General Internal Medicine 04/24/21 documented as of this encounter Additional Source Comments The information contained in this document represents components of the legal health record. It is not the complete legal health record.[facility]
--- OUTSIDE RECORDS SUMMARY | 2025-05-06 09:03 | XMS_ITS | Encounter Summary ---
Author Organization [facility] Address [address] [address] Phone Care Team Providers Care Form Building Supervisor Name Role Phone Pcp, Unknown Primary Care Provider Unavailabl e Shauna Grimes MD Primary Care Provider Encounter Details Date Type Department Care Team (Late st Contact Info) Description 06/28/2020 Procedure Pass [facility] PERIOP DEPT [address] [place] [phone] Social History Tobacco Use Types Packs/Day Years [...] on filedocumented in this encounter Care Teams Form Building Supervisor Relationship Specialty Start Date End Date Pcp, Unknown PCP - General 10/05/19 04/23/21 Shauna Grimes MD [address] [place] [phone] PCP - General Internal Medicine 04/24/21 documented as of this encounter Additional Source Comments The information contained in this document represents components of the legal health record. It is not the complete legal health record.[facility]
--- NOTE | 2025-05-06 09:04 | ED.GENADULT ---
HPI - General Adult General Chief complaint: Ear Problems Stated complaint: Bacterial inf on R ear spreading, meds not working Time Seen by Provider: 05/06/25 09:02 Source: patient, RN notes reviewed and old records reviewed Mode of arrival: ambulatory Limitations: no limitations History of Present Illness ED Provider: Jasmin [facility] narrative: Patient is a 34-year-old male presenting to the ED with complaint of right ear pain as well as right eye swelling, redness and drainage. States he saw PCP for his ear which he states began as a crack behind his ear, was prescribed an antifungal cream but now having pain inside his ear. States his eye symptoms began right after the ear pain. Denies any changes in vision, does not wear contacts. States he was also prescribed an eye ointment for conjunctivitis but does not appear to be improving. MD complaint: right ear pain, right eye redness Onset (ago): day(s) Related Data Previous Rx's ?Medication ?Instructions ?Recorded amoxicillin 875 mg tablet 875 mg PO BID #14 tabs 05/06/25 mupirocin 2 % topical ointment 1 appl topical BID 7 days #15 grams 05/06/25 (Centany) polymyxin B sulfate 10,000 1 drp ophthalmic (eye) Q3H 7 days 05/06/25 unit-trimethoprim 1 mg/mL eye drops #10 mL Allergies Allergy/AdvReac Type Severity Reaction Status Date / Time SEASONAL ALLERGIES Allergy Mild UNKNOWN Uncoded 05/06/25 07:56 Review of Systems Review of Systems: as per hpi Yes all other systems are reviewed and are negative Constitutional: Constitutional: Reports as per HPI PMFSH Past Medical History Medical History Scalp cyst Morbid obesity Surgical History Hx of removal of cyst (~09/27/24) Social History Social History Patient Tobacco Use Status: Never used Tobacco Advance Directives: No Advance Directives Information Provided: No Current occupational status: unemployed Physical Exam ED Vital Signs: Vital Signs - 24 hr 05/06/25 07:54 Temperature 97.7 F Pulse Rate 102 H Respiratory Rate 16 Blood Pressure 161/83 H Pulse Oximetry 95 Oxygen Delivery Method Room Air BMI result Body Mass Index 30.1 Vital signs have been reviewed and appear to be correct. Blood pressure normal. Heart rate normal. Respiratory rate normal. Temperature normal. Oxygen saturation normal. Const General: cooperative, healthy appearing and no acute distress Orientation/consciousness: oriented to person, oriented to place, oriented to time and patient oriented x3 Limitations: no limitations [facility] Head: Yes normocephalic and Yes atraumatic Ears: hearing grossly normal bilaterally, TM normal on the left, EAC's normal, mastoids normal bilaterally, no periauricular adenopathy, external ear abnormal other (erythema and several small pustules to right lower earlobe, slight erythema behind right er) and TM abnormal bulging on the right, wth effusion purulent on the right and erythematous on the right General nose exam: Normal external nose present Face and sinus: Yes face symmetric Mouth: oropharynx normal and moist mucous membranes Throat: Yes uvula midline Eyes Alignment and Position: alignment normal and position normal Periorbital: periorbital findings normal Eyelids: Yes eyelid abnormality (mild swelling right upper eyelid) Conjunctivae: conjunctival abnormal right conjunctival injection diffuse (mild) Sclerae: sclerae normal Corneas: corneas normal Pupils: Equal, round and reactive pupils present EOM: EOMs intact bilaterally Neck Neck: Yes normal visual inspection and Yes supple Resp Effort & Inspection: normal respiratory effort and able to speak in complete sentences Auscultation: clear to auscultation bilaterally Cardio Rate: regular rate Rhythm: regular rhythm Heart sounds: S1 normal heart sound present and S2 normal heart sound present GI Palpation (GI): Soft to palpation and nontender Auscultation: normoactive bowel sounds General: Yes no CVA tenderness Back/Spine/Pelvis Back: no CVA tenderness Skin General skin exam: elasticity normal and turgor normal Neuro General: oriented to person, oriented to place, oriented to time, patient oriented x3, moves all extremities, no focal motor deficits and CN's II-XI intact bilaterally Cranial nerves: Yes Equal, round and reactive pupils present Cognition (Neuro): normal cognition Extrem General: Yes full ROM, Yes no pedal edema and Yes no calf tenderness Psych Mental Status: mental status grossly normal Affect: normal affect Thought process: Normal thought process present Medical Decision Making Medical Decision Making MDM Narrative: Patient is a 34-year-old male presenting to the ED with complaint of right ear pain as well as right eye swelling, redness and drainage. On exam patient is awake, A+Ox3, VS WNL, afebrile, normal neurological exam without focal deficits, physical exam findings as above. Given reported symptoms and physical exam findings, initial differential includes but is not limited to otitis media, otitis externa, folliculitis, viral versus bacterial versus allergic conjunctivitis. Do not suspect mastoiditis. Will treat with amoxicillin for AOM, mupirocin for folliculitis of external earlobe, and polymixin B/trimethoprim for conjunctivitis of right eye. Advised close follow up with PCP. Return precautions discussed as well as the importance of good hand hygeine and avoiding the use of earbuds. Patient verbalized understanding of and agreement with plan. Differential Diagnosis Differential Diagnoses: The differential diagnosis associated with the presentation includes as per [facility] Admission/Observation Consideration of admission/observation: Escalation of care including admission/observation considered Patient would have been admitted to the hospital had their clinical presentation warranted hospital admission. External Record Review External record reviewed: Inpatient record, Office record and Outpatient record Prescription Management I considered prescription management with: Antibiotic Discharge Plan Discharge Clinical Impression: Folliculitis Otitis media Qualifiers: Chronicity: acute Laterality: right Conjunctivitis Qualifiers: Conjunctivitis type: acute Acute conjunctivitis type: unspecified Laterality: right Qualified Code(s): H10.31 - Unspecified acute conjunctivitis, right eye Patient Disposition: Home, Self-Care Instructions: Ear Infection (ED), Folliculitis (ED), Conjunctivitis (ED) Additional Instructions: You were evaluated in the emergency department today for ear pain. You are being treated with oral antibiotics as well as a topical antibiotic ointment. You are also being prescribed antibiotic eyedrops for conjunctivitis. Use all medications as prescribed and complete the full course as prescribed even if your symptoms improve. Follow up with your primary care provider as needed. You can use Tylenol or ibuprofen per package instructions as needed for pain. Return to the emergency department if you develop worsening pain, fevers, difficulty hearing, changes in vision or any other new or concerning symptoms. Prescriptions: New amoxicillin 875 mg tablet 875 mg PO BID Qty: 14 0RF polymyxin B sulf-trimethoprim 10,000 unit- 1 mg/mL drops 1 drp ophthalmic (eye) Q3H 7 Days Qty: 10 0RF Rx Instructions: while awake; do not exceed 6 doses in 24 hours mupirocin [Centany] 2 % ointment 1 appl topical BID 7 Days Qty: 15 0RF Rx Instructions: apply to right external ear Print Language: Citizen Of [place]
--- OUTSIDE RECORDS SUMMARY | 2025-05-06 09:04 | XMS_ITS | Encounter Summary ---
Author Organization [facility] Address [address] [place] [address] [place] [address] Phone Care Team Providers Care Shipwright Apprentice Name Role Phone Pcp, Unknown Primary Care Provider Unavailabl e Shauna Grimes MD Primary Care Provider Encounter Details Date Type Department Care Team (Late st Contact Info) Description 06/24/2020 Prep for Surgery [facility] [place] [address] [place] [address] Margarita Alcantara MD, PhD, MPH [address] [place] [phone] [email or web address] Social History Tobacco Use Types Packs/Day [...] on filedocumented in this encounter Care Teams Shipwright Apprentice Relationship Specialty Start Date End Date Pcp, Unknown PCP - General 10/05/19 04/23/21 Shauna Grimes MD [address] [place] [phone] PCP - General Internal Medicine 04/24/21 documented as of this encounter Additional Source Comments The information contained in this document represents components of the legal health record. It is not the complete legal health record.[facility]
--- OUTSIDE RECORDS SUMMARY | 2025-05-06 09:04 | XMS_ITS | Clinical Summary ---
Author Organization [facility] Address [address] [facility] [address] [place] [address] Care Team Providers Care Phlebotomy Lab Assistant Name Role Phone Shauna Grimes MD Primary Care Provide r Allergies No known active allergies Medications * This document contains information received from the source organization and may not represent a complete record from that organization. clotrimazole-betam ethasone (Lotrisone) creamIndications:R art Apply topically 2 times daily for 28 days. 15 g 5 025 Active neomycin-polymyxin -dexAMETHasone (Maxitrol) 0.1 % ophthalmic suspensionIndicati ons:Acute bacterial conjunctivitis of right eye Administer 1 drop into the right eye 4 times daily for 10 days. 5 mL 5 025 Active phentermine 15 MG capsuleIndications :Class 3 severe obesity due to excess calories without serious comorbidity in adult Take 1 capsule (15 mg) by mouth before breakfast. 30 capsule 5 025 Active topiramate (Topamax) 25 MG tabletIndications: Class 3 severe obesity due to excess calories without serious comorbidity in adult Take 1 tablet (25 mg) by mouth Once per day. 30 tablet 1 5 026 Active Blood Pressure Monitoring (Blood Pressure Cuff) miscIndications:El evated blood pressure reading 1 each in the morning. 1 each 5 Active Active Problems Problem Noted Date Diagnosed Date Acute bacterial conjunctivitis of right eye 03/2025 Rash 04/30/2025 Elevated blood pressure reading 04/30/2025 Assessment & Plan (04/30/2025 10:18 AM EDT): Today blood pressure is elevated, he claims that he drink a lot of coffee before coming here, I advised low-sodium diet and weight reduction, I will prescribe for him blood pressure cuff I asked him to monitor his BP log it and bring it for next appointment to me Scalp cyst 09/05/2024 Assessment & Plan (09/05/2024 [...] creating beats. PLAN: 1. Follow up with [facility]: Not recommended for follow-up 2. Patient goal is to engage in OP therapy 3. Behavioral Recommendations a. Explore deep breathing and grounding b. Contact [facility] behavioral health supports for follow up as needed Health care maintenance 12/04/2022 Erectile dysfunction 11/05/2022 Class 3 severe obesity due t o excess calories without serious comorbidity in adult 11/05/2022 Assessment & Plan (04/30/2025 10:19 AM EDT): Extensive counseling about healthy diet and exercise done today In light of patient has tried many times diet and exercise I am we will start him on phentermine 15 mg and topiramate 25 mg daily, I reviewed with patient side effects including anxiety palpitation and high blood pressure, I let him know on a little worried because he does have high blood pressure reading and I asked him to monitor closely while taking this medicine medication and if blood pressure is consistently above 140/90 to discontinue the medication Encounters Date Type Department Care Team Description 05/02/2025 Telephone [facility] [address] [place] [address] Shauna Grimes MD Medication Question 04/30/2025 9:20 AM EDT Office Visit [facility] [address] [place] [address] Shauna Grimes MD Acute bacterial conjunctivitis of right eye (Primary Dx); Rash; Class 3 severe obesity due to excess calories without serious comorbidity in adult; Elevated blood pressure reading 04/30/2025 Travel from Last 3 Months Immunizations Immunization Administration Dates Next Due HPV 9-Valent 11/23/2022, [...] Sign Reading Time Taken Comments Blood Pressure 130/98 04/30/2025 9:07 AM EDT Man ual Pulse 67 04/30/2025 8:58 AM EDT Temperature 36.8 C (98.3 F) 04/30/2025 8:58 AM EDT Respiratory Rate 18 04/30/2025 8:58 AM EDT Oxygen Saturation 97% 04/30/2025 8:58 AM EDT Inhaled Oxygen Concentration - - Weight 130 kg (285 lb 9.6 oz) 04/30/2025 8:58 AM EDT Height 177.8 cm (5' 10 ) 09/05/2024 3:06 PM EST Body Mass Index 40.98 09/05/2024 3:06 PM EST Plan of Treatment Upcoming Encounters Date Type Department Care Team (Late st Contact Info) Description 06/18/2025 2:30 PM EDT Office Visit [facility] [address] [facility] [address] Shauna Grimes MD [address] [place] [address] Health Maintenance Due Date Last Done Comments Alcohol/Substance Use Screening 2000 Family Planning (PISQ) 11/28/2003 Depression Screening 12/05/2023 12/04/2022, 12/05/19 23 Tobacco Screening 09/05/2025 09/05/2024 SDOH Screening 09/28/2025 09/28/2024 Disability Screening 10/06/2025 10/06/2024 Lipid Panel 12/05/2027 12/04/2022 DTaP/Tdap/Td Vaccines (3 - Td or Tdap) 07/15/2031 07/15/2021, 01/30/2019 Zoster Vaccines (2 of 2) 2038 07/11/2024 RSV Patients and Patients Aged 60 years or older (1 - 1-dose 75+ series) 11/28/2063 HPV Vaccines Completed 11/23/2022, 08/0 08/2021, 10/28/2021, Additional history exists COVID-19 Vaccine Completed 06/01/2024, 01/2023, 05/06/2022, Additional history exists Pneumococcal Vaccine: Pediatrics (0 to 5 Years) and At-Risk Patients (6 to 49) Years Aged Out 06/16/2024 No longer eligible based on patient's age to complete this topic Meningococcal Vaccine Aged Out 07/11/2024 No bony elvira eligible based on patient's age to complete this topic HIV Screening Completed 09/08/2024 Hepatitis C Screening Completed 09/08/2024 Hepatitis A Vaccines Aged Out 04/05/2025, 07/29/2024, 06/16/2024 No longer eligible based on patient's age to complete this topic Hepatitis B Vaccines Completed 04/05/2025, 07/29/2024, 06/16/2024 Influenza Vaccine Completed 04/05/2025, , 05/06/2022, Additional history exists HIB Vaccines Aged Out No longer eligi ble based on patient's age to complete this topic IPV Vaccines Aged Out No longer eligi ble based on patient's age to complete this topic Meningococcal B Vaccine Aged Out No l onger eligible based on patient's age to complete this topic RSV under 20 months Aged Out No longe r eligible based on patient's age to complete this topic Rotavirus Vaccines Aged Out No longer eligible based on patient's age to complete this topic Procedures Procedure Name Priority Date/Time Associated Diagnosis Comments HEPATITIS C ANTIBODY ([place] DPH) Routine 09/08/2024 HIV ANTIBODY/ANTIGEN ([place] DP) Routine 09/08/2024 LIPID PANEL, STANDARD Routine 12/04/2022 2:35 PM EDT Class 3 severe obesity due to excess calories without serious comorbidity with body mass index (BMI) of 40.0 to 44.9 in adult (CMS/HCC) from Last 3 Months or Most Recently Relevant to Health Maintenance Results * Hepatitis C Antibody ([place] DP) (09/08/2024) Hepatitis C Ab Nonreactive Blood 09/08/2024 Historical Provider MD LAB BLOOD ORDERABLES [facility] Result * HIV Ab/Ag ([place] DP) (09/08/2024) HIV Ag/Ab Nonreactive Blood 09/08/2024 Historical Provider MD LAB BLOOD ORDERABLES [facility] Result * (ABNORMAL) Lipid Panel, Standard (12/04/2022 2:35 PM EDT) Cholesterol, Total 223(H) <200 mg/dL [facility] HDL Cholesterol 61 > OR = 40 mg/dL [facility] Triglycerides 155(H) <150 mg/dL [facility] LDL Cholesterol 133(H) mg/dL (calc) [facility] Comment: Reference range: <100 Desirable range <100 mg/dL for primary prevention; <70 mg/dL for patients with CHD or diabetic patients with > or = 2 CHD risk factors. LDL-C is now calculated using the Ramon calculation, which is a validated novel method providing better accuracy than the Friedewald equation in the estimation of LDL-C. Mark YOST et al. GUZMAN. 2013;310(19): 2179-7214 (http://education.[place]/faq/DRW820) Chol/HDLC Ratio 3.7 <5.0 (calc) [facility] Non-HDL Cholesterol 162(H) <130 mg/dL (calc) [facility] Comment: For patients with diabetes plus 1 major ASCVD risk factor, treating to a non-HDL-C goal of <100 mg/dL (LDL-C of <70 mg/dL) is considered a therapeutic option. Blood Venous blood specimen / Unknown 12/04/2022 2:35 PM EDT 12/04/2022 2:36 PM EDT Shauna Rodriguez MD LAB BLOOD ORDERABLES Final Result [facility] [address], [facility] [address] [facility] [facility] [address] [place] [phone] from Last 3 Months or Most Recently Relevant to Health Maintenance Insurance [place] [address] [address] [place] [phone] [place] [employer] Care Teams Phlebotomy Lab Assistant Relationship Specialty Start Date End Date Shauna Grimes MD [address] [place] [phone] PCP - General Family Medicine 01/20/19
[2025-05-06 09:58] VITALS: BP 161/83; PULSE 102; RESP 16; TEMP 36.5; O2SAT 95
== END 2025-05-06 09:58 | disposition home or self-care (01) ==
PROVIDERS: Emergency Provider Emergency Medicine; PCP Internal Medicine
DX: H10.31 Unspecified acute conjunctivitis, right eye (principal); L73.9 Follicular disorder, unspecified; H66.91 Otitis media, unspecified, right ear; H92.01 Otalgia, right ear
CPT/HCPCS: 99282; 99283

== ENCOUNTER 2025-08-06 08:02 | Emergency (ER) | payer MEDICARE, MEDICAID, SELFPAY ==
--- NOTE | ~2025-08-06 | XR_ITS ---
EXAMINATION: XR FOOT, RIGHT CLINICAL INFORMATION: ? FB SIDE OF R FOOT COMPARISON: Previous x-ray January 2009 TECHNIQUE: AP, lateral, and oblique views of the right foot. FINDINGS: Bone alignment is normal. No fracture or dislocation. Normal joint spaces. Small calcaneal spurs. Soft tissue swelling adjacent to the lateral foot next to the distal shaft of the fifth metatarsal bone and a small defect in the soft tissues. No soft tissue radiopaque foreign body seen. XR/XR foot RT min 3V IMPRESSION: No soft tissue foreign body seen. Mild soft tissue swelling and defect in the soft tissues in the lateral foot next to the distal shaft of the fifth metatarsal bone. Electronically signed by: Christen Gonzalez MD 08/06/2025 08:45 AM YONY
[2025-08-06 08:21] VITALS: BP 142/73; PULSE 82; RESP 18; TEMP 36.3; O2SAT 97; BMI 40.2
--- NOTE | 2025-08-06 10:56 | ED.EXTPRO ---
HPI - Extremity Problem General Chief complaint: Extremity Problem Stated complaint: Splinter on foot, bleeding? Time Seen by Provider: 08/06/25 10:50 Source: patient and old records reviewed Mode of arrival: ambulatory Limitations: no limitations History of Present Illness ED Provider: JOSE CRUZ ARELLANO Narrative: 34 yo male with PMH of prior pre-diabetes now here with c/o splinter of R foot one month ago thought it was wood and removed it. Now still has crack but no drainage, fevers, redness. He has mild swelling. His feet are also cracked and dry and he is not using lotions. 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 He is wearing comfortable boots on arrival and support socks. He notes since the splinter the foot never fully healed. Onset (ago): month(s) (1) Pain Consistency: constant Location: right and lower extremity Radiation: none Relieving factors: nothing Exacerbating factors: nothing Associated symptoms: denies other symptoms Context: other Related Data Previous Rx's ?Medication ?Instructions ?Recorded amoxicillin 875 mg tablet 875 mg PO BID #14 tabs 05/06/25 mupirocin 2 % topical ointment 1 appl topical BID 7 days #15 grams 05/06/25 (Centany) polymyxin B sulfate 10,000 1 drp ophthalmic (eye) Q3H 7 days 05/06/25 unit-trimethoprim 1 mg/mL eye drops #10 mL cephalexin 500 mg capsule 500 mg PO QID 7 days #28 caps 08/06/25 mupirocin 2 % topical ointment 1 appl topical BID 7 days #15 grams 08/06/25 (Centany) Allergies Allergy/AdvReac Type Severity Reaction Status Date / Time SEASONAL ALLERGIES Allergy Mild UNKNOWN Uncoded 08/06/25 08:24 Review of Systems Review of Systems: Yes all other systems are reviewed and are negative PMFSH Past Medical History Attestation statement: The following information was validated with the patient. Source: old records reviewed Medical History Scalp cyst Morbid obesity Surgical History Hx of removal of cyst (~09/27/24) Social History Social History Patient Tobacco Use Status: Never used Tobacco Advance Directives: No Advance Directives Information Provided: No Current occupational status: unemployed Physical Exam Vital Signs: Vital Signs: Last Vital Signs Temp 98.6 F 08/06/25 11:04 Pulse 75 08/06/25 11:04 Resp 18 08/06/25 11:04 BP 157/103 H 08/06/25 11:04 Pulse Ox 98 08/06/25 11:04 O2 Del Method Room Air 08/06/25 11:04 BMI result Body Mass Index 40.2 Appearance: Alert. Oriented X3. No acute distress. Eyes: Pupils equal, round and reactive to light. ENT: Pharynx normal. Neck: Normal inspection. Neck supple. CVS: Pulses normal. Respiratory: No respiratory distress. Abdomen: atraumatic Skin: Skin warm and dry. Normal skin color. Extremities: No lower extremity edema. R foot cracks throughout the heel and thin 2cm open wound no drainage, mild erhthema, mild swelling, normal pulses no FB felt or seen Neuro: Oriented X 3. No motor deficit. No sensory deficit. Medical Decision Making Medical Decision Making MDM Narrative: 34-year-old male with past medical history of prediabetes but he has managed it with diet and doing well comes in with 1 month ago had a wooden splinter in the right lateral part of the foot that he removed he then was unsure if he removed all of the splinter. He notes the area was punctured has never fully healed. He also has completely cracked and dry skin on the area between the dorsum and plantar surface of the foot. Has mild erythema of the open area but no purulence or drainage no abscess on exam. At this time I am going to start on mupirocin and Keflex and refer to Podiatry. He will also use ointment at night such as Aquaphor or Vaseline and wear socks to improve the cracked skin. Differential Diagnosis Differential Diagnoses: The differential diagnosis associated with the presentation includes Delayed wound healing due to chronic cracked feet, retained foreign body Admission/Observation Consideration of admission/observation: Escalation of care including admission/observation considered Not toxic no signs of significant skin infection can be treated as an outpatient Independent Interpretation I performed an independent interpretation of an: Plain X-Ray (No foreign body seen) Radiology Impression Discussion of test interpretation with radiology: I have reviewed the radiologist's reading. External Record Review External record reviewed: Outpatient record Prescription Management I considered prescription management with: Antibiotic and Other Discharge Plan Discharge Clinical Impression: Open wound Patient Disposition: Home, Self-Care Instructions: Puncture Wound (ED) Additional Instructions: there is no foreign body seen on x-ray At this time is going to apply mupirocin ointment to the open wound twice a day for 1 week. At nighttime you going to apply Vaseline or Aquaphor to the heels and then wear socks overnight. It is okay to take a shower. Please follow-up with Podiatry. Return for any worsening symptoms, redness, swelling, yellow drainage, fever or any other concerns On a cephalosporin?antibiotic, softer bowel movements are to be expected. Call your provider if you move your bowels more than 4 times a day, your bowel movements are almost all liquid, or you get a rash.?? Prescriptions: New mupirocin [Centany] 2 % ointment 1 appl topical BID 7 Days Qty: 15 0RF cephalexin 500 mg capsule 500 mg PO QID 7 Days Qty: 28 0RF No Action amoxicillin 875 mg tablet 875 mg PO BID Qty: 14 0RF polymyxin B sulf-trimethoprim 10,000 unit- 1 mg/mL drops 1 drp ophthalmic (eye) Q3H 7 Days Qty: 10 0RF Rx Instructions: while awake; do not exceed 6 doses in 24 hours mupirocin [Centany] 2 % ointment 1 appl topical BID 7 Days Qty: 15 0RF Rx Instructions: apply to right external ear Referrals: [facility] Podiatry [Provider Group, Podiatry] Interventions: ED Discharge Assessment Last Done: 08/06/25 11:04 Discharge Date/Time: 08/06/25 11:05 Print Language: Chinese
[2025-08-06 11:04] VITALS: BP 157/103; PULSE 75; RESP 18; TEMP 37; O2SAT 98
--- OUTSIDE RECORDS SUMMARY | 2025-08-06 15:49 | XMS_ITS | Clinical Summary ---
Author Organization [facility] Address [address] [address] Phone Care Team Providers Care Manager Credit Collections Name Role Phone Shauna Headley MD Primary Care Provider Allergies No known [...] file Insurance MEDICARE PART A & B [facility] MEDICARE PART A & B [facility] MEDICARE PART A & B [facility] MEDICARE PART A & B [facility] MEDICARE PART A & B MEDICARE PART A & B [facility] MEDICARE PART A & B [facility] MEDICARE PART [facility] & [facility] B [facility] Care Teams Manager Credit Collections Relationship Specialty Start Date End Date Shauna Headley MD [address] [place] [phone] PCP - General Internal Medicine 04/24/21 Additional Source Comments The information contained in this document represents components of the legal health record. It is not the complete legal health record.[facility]
--- OUTSIDE RECORDS SUMMARY | 2025-08-06 15:49 | XMS_ITS | Encounter Summary ---
Author Organization [employer] Address [address] [facility] 7t [place] [address] Care Team Providers Care Healthcare Management Name Role Phone Shauna Grimes MD Primary Care Provide r Encounter Details Date Type Department Care Team ([facility] Contact Info) Description 08/06/2025 Orders Only [facility] External Provider, [facility] Social History Tobacco Use Types Packs/Day Years [...] Procedure Name Priority Date/Time Associated Diagnosis Comments XR FOOT 3+ VIEWS RIGHT Routine 08/06/2025 8:34 AM EST documented in this encounter Results * XR Foot 3+ Views Right (08/06/2025 8:34 AM EST) Anatomical Region Laterality Modality Lower Extremities, Foot Right Radiogra phic Imaging 08/06/2025 8:34 AM EST Narrative 08/06/2025 8:48 AM EST [place] [address] XRay Report Signed Patient: Darryl Marin MR#: [id number] : 1990 Acct:[id number] Age/Sex: 34 / M ADM Date: 08/06/25 Loc: HO.ED Attending Dr: Ordering Physician: Generic ED Physician Date of Service: 08/06/25 Procedure(s): XR foot RT min 3V Accession Number(s): [id number] cc: Shauna Grimes MD; Generic ED Physician Reason for Exam: ? FB SIDE OF R FOOT EXAMINATION: XR FOOT, RIGHT CLINICAL INFORMATION: ? FB SIDE OF R FOOT COMPARISON: Previous x-ray January 2009 TECHNIQUE: AP, lateral, and oblique views of the right foot. FINDINGS: Bone alignment is normal. No fracture or dislocation. Normal joint spaces. Small calcaneal spurs. Soft tissue swelling adjacent to the lateral foot next to the distal shaft of the fifth metatarsal bone and a small defect in the soft tissues. No soft tissue radiopaque foreign body seen. XR/XR foot RT min 3V IMPRESSION: No soft tissue foreign body seen. Mild soft tissue swelling and defect in the soft tissues in the lateral foot next to the distal shaft of the fifth metatarsal bone. Electronically signed by: Christen Gonzalez MD 08/06/2025 08:45 AM EST RP Dictated By: Christen Gonzalez MD Signed By: <Electronically signed by Christen Gonzalez MD in OV> 08/06/2545 DD/ 3 TD/TT: 08/06/25836 Structural Engineering Project Manager: TIKA Procedure Note Donotuseinterpreter, Image - 08/06/[address] [address] XRay Report Signed Patient: Darryl Marin MMR#: [id number] : 1990Acct:[id number] Age/Sex: 34 / MADM Date: 08/06/25 Loc: .ED Attending Dr: Ordering Physician: Generic ED Physician Date of Service: 08/06/25 Procedure(s): XR foot RT min 3V Accession Number(s): [id number] cc: Shauna Grimes MD; Generic ED Physician Reason for Exam: ? FB SIDE OF R FOOT EXAMINATION: XR FOOT, RIGHT CLINICAL INFORMATION: ? FB SIDE OF R FOOT COMPARISON: Previous x-ray January 2009 TECHNIQUE: AP, lateral, and oblique views of the right foot. FINDINGS: Bone alignment is normal. No fracture or dislocation. Normal joint spaces. Small calcaneal spurs. Soft tissue swelling adjacent to the lateral foot next to the distal shaft of the fifth metatarsal bone and a small defect in the soft tissues. No soft tissue radiopaque foreign body seen. XR/XR foot RT min 3V IMPRESSION: No soft tissue foreign body seen. Mild soft tissue swelling and defect in the soft tissues in the lateral foot next to the distal shaft of the fifth metatarsal bone. Electronically signed by: Christen Gonzalez MD 08/06/2025 08:45 AM EST RP Dictated By: Christen Gonzalez MD Signed By: <Electronically signed by Christen Gonzalez MD in OV> 08/06/2545 DD/ 3 TD/TT: 08/06/25836 Structural Engineering Project Manager: TIKA [facility] External Provider IMG XR PROCEDURES Final Result documented in this encounter Visit Diagnoses Not on filedocumented in this encounter Additional Health Concerns Assessment Noted Time PHQ-9 Depression Total Score: 8 12/05/19 23 1:58 PM EDT documented as of this encounter Care Teams Healthcare Management Relationship Specialty Start Date End Date Shauna Grimes MD [address] [place] [address] PCP - General Family Medicine 01/20/19 documented as of this encounter
--- OUTSIDE RECORDS SUMMARY | 2025-08-06 15:49 | XMS_ITS | Encounter Summary ---
Author Organization [email or web address] Address [address] [facility] 7t [place] [address] Care Team Providers Care Music Librarian Name Role Phone Shauna Grimes MD Primary Care Provide r Encounter Details Date Type Department Care Team (Late st Contact Info) Description 11/17/2022 Telephone [facility] [address] [place], [place] [phone] Shauna Grimes MD [address] [place] [address] Social History Tobacco Use Types Packs/Day Years [...] on filedocumented in this encounter Care Teams Music Librarian Relationship Specialty Start Date End Date Shauna Grimes MD [address] [place] [address] PCP - General Family Medicine 01/20/19 documented as of this encounter
--- OUTSIDE RECORDS SUMMARY | 2025-08-06 15:49 | XMS_ITS | Encounter Summary ---
Author Organization [employer] Address [address] [facility] 7t [place] [address] Care Team Providers Care Hoe Worker Name Role Phone Shauna Grimes MD Primary Care Provide r Encounter Details Date Type Department Care Team ([facility] st Contact Info) Description 08/21/2024 Orders Only [facility] MEDICINE [address] [place], [place] [phone] Shauna Grimes MD [address] [place] [address] Social History Tobacco Use Types Packs/Day Years [...] documented as of this encounter Care Teams Hoe Worker Relationship Specialty Start Date End Date Shauna Grimes MD [address] [place] [address] PCP - General Family Medicine 01/20/19 documented as of this encounter
--- OUTSIDE RECORDS SUMMARY | 2025-08-06 15:49 | XMS_ITS | Encounter Summary ---
Author Organization [facility] Address [address] [place] [address] Phone Care Team Providers Care Biological Chemist Name Role Phone Pcp, Unknown Primary Care Provider Unavailcorrie e Shauna Headley MD Primary Care Provider Encounter Details Date Type Department Care Team (Late st Contact Info) Description 06/28/2020 Procedure Pass [facility] [address] [place] [phone] Social History Tobacco Use Types Packs/Day Years [...] on filedocumented in this encounter Care Teams Biological Chemist Relationship Specialty Start Date End Date Pcp, Unknown PCP - General 10/05/19 04/23/21 Shauna Headley MD [address] [place] [address] PCP - General Internal Medicine 04/24/21 documented as of this encounter Additional Source Comments The information contained in this document represents components of the legal health record. It is not the complete legal health record.[facility]
--- OUTSIDE RECORDS SUMMARY | 2025-08-06 15:50 | XMS_ITS | Encounter Summary ---
Author Organization [facility] Address [address] [place] [address] Phone Care Team Providers Care Acoustical Engineer Name Role Phone Pcp, Requested Primary Care Provider Unavailabl e Pcp, Unknown Primary Care Provider Unavailabl e Shauna Headley MD Primary Care Provider Encounter Details Date Type Department Care Team ([facility] Contact Info) Description 09/21/2019 Telephone [facility] [address] [place] [address] Margarita Alcantara MD, PhD, MPH [address] [place] [phone] [email or web address] Social History Tobacco Use Types Packs/Day [...] on filedocumented in this encounter Care Teams Acoustical Engineer Relationship Specialty Start Date End Date Pcp, Requested PCP - General 12/26/18 10/04/19 Pcp, Unknown PCP - General 10/05/19 04/23/21 Shauna Headley MD [address] [place] [address] PCP - General Internal Medicine 04/24/21 documented as of this encounter Additional Source Comments The information contained in this document represents components of the legal health record. It is not the complete legal health record.[facility]
--- OUTSIDE RECORDS SUMMARY | 2025-08-06 15:50 | XMS_ITS | Clinical Summary ---
Author Organization [employer] Address [address] [facility] 7t [place] [address] Care Team Providers Care Superintendent Production Name Role Phone Shauna Grimes MD Primary Care Provide r Allergies No known active allergies Medications * This document contains information received from the source organization and may not represent a complete record from that organization. phentermine 15 MG capsuleIndicatio ns:Class 3 severe obesity due to excess calories without serious comorbidity in adult (HCC) Take 1 capsule (15 mg) by mouth before breakfast. 30 capsule 04/30/2025 Active topiramate (Topamax) 25 MG tabletIndication s:Class 3 severe obesity due to excess calories without serious comorbidity in adult (HCC) Take 1 tablet (25 mg) by mouth Once per day. 30 tablet 1 04/30/2025 04/30/20 26 Active Blood Pressure Monitoring (Blood Pressure Cuff) miscIndications: Elevated blood pressure reading 1 each in the morning. 1 each 04/30/2025 Active Active Problems Problem Noted Date Diagnosed [...] creating beats. PLAN: 1. Follow up with [facility]: Not recommended for follow-up 2. Patient goal is to engage in OP therapy 3. Behavioral Recommendations a. Explore deep breathing and grounding b. Contact [facility] behavioral health supports for follow up [...] Encounters Date Type Department Care Team Description 08/06/2025 Orders Only [facility] External Provider, [facility] 06/15/[address] [address] Shauna Grimes MD Chart Prep 06/12/2025 Telephone [facility] [address] [place] [address] Eliane Calderon RN Paperwork/Forms 06/11/2025 Travel 05/15/2025 Travel 05/14/2025 Telephone [facility] [address] [place] [address] Shauna Grimes MD ER Follow-up from Last 3 Months Immunizations Immunization Administration Dates Next Due HPV 9-Valent 11/23/2022,,10/28/2021,2020 [...] (PISQ) 11/28/2003 Depression Screening 12/05/2023 12/04/2022, 12/05/19 Tobacco Screening 09/05/2025 09/05/2024 SDOH Screening 09/28/2025 09/28/2024 Disability Screening 10/06/2025 10/06/2024 Lipid Panel 12/05/2027 12/04/2022 DTaP/Tdap/Td Vaccines (3 - Td or Tdap) 07/15/2031 07/15/2021, 01/30/2019 Zoster Vaccines (2 of 2) 2038 07/11/2024 RSV Patients and Patients Aged 60 years or older (1 - 1-dose 75+ series) 11/28/2063 HPV Vaccines Completed 11/23/2022, 08/0 08/2021, 10/28/2021, Additional history exists Pneumococcal Vaccine: Pediatrics (0 [...] Completed 04/05/2025, , 05/06/2022, Additional history exists COVID-19 Vaccine Completed 05/06/2025, 05/2024, 06/28/2023, Additional history exists HIB Vaccines Aged Out [...] VIEWS RIGHT Routine 08/06/2025 8:34 AM EST HEPATITIS C ANTIBODY ([place] [facility]) Routine 09/08/2024 HIV ANTIBODY/ANTIGEN ([place] [facility]) Routine 09/08/2024 LIPID PANEL, STANDARD Routine 12/04/2022 2:35 PM EDT Class 3 severe obesity due to excess calories without serious comorbidity with body mass index (BMI) of 40.0 to 44.9 in adult (CMS/HCC) from Last 3 Months or Most Recently Relevant to Health Maintenance Results * XR Foot 3+ Views Right (08/06/2025 8:34 AM EST) Anatomical Region Laterality Modality Lower Extremities, Foot Right Radiogra phic Imaging 08/06/2025 8:34 AM EST Narrative 08/06/2025 8:48 AM EST [place] [address] XRay Report Signed Patient: Darryl Marin MR#: [id number] : 1990 Acct:[id number] Age/Sex: 34 / M ADM Date: 08/06/25 Loc: HO.ED Attending Dr: Ordering Physician: Generic ED Physician Date of Service: 08/06/25 Procedure(s): XR foot RT min 3V Accession Number(s): [id number] cc: Shauna Grimes MD; Generic ED Physician [...] Christen Gonzalez MD 08/06/2025 08:45 AM EST Dictated By: Christen Gonzalez MD Signed By: <Electronically signed by Christen Gonzalez MD in OV> 08/06/25844 DD/ 3 TD/TT: 08/06/25836 Baby Attendant: TIKA Procedure Note Donotuseinterpreter, Image - 08/06/[address] [address] XRay Report Signed Patient: Darryl Marin MMR#: [id number] : 1990Acct:[id number] Age/Sex: 34 / MADM Date: 08/06/25 Loc: HO.ED Attending Dr: Ordering Physician: Generic ED Physician Date of Service: 08/06/25 Procedure(s): XR foot RT min 3V Accession Number(s): [id number] cc: Shauna Grimes MD; Generic ED Physician [...] fifth metatarsal bone. Electronically signed by: Christen oGnzalez MD 08/06/2025 08:45 AM EST Dictated By: Christen Gonzalez MD Signed By: <Electronically signed by Christen Gonzalez MD in OV> 08/06/2545 DD/ 3 TD/TT: 08/06/25836 Baby Attendant: TIKA [facility] External Provider IMG XR PROCEDURES Final Result * Hepatitis C Antibody ([facility]) (09/08/2024) Hepatitis C Ab Nonreactive Blood 09/08/2024 Historical Provider MD LAB BLOOD ORDERABLES [facility] Result * HIV Ab/Ag ([facility]) (09/08/2024) HIV Ag/Ab Nonreactive Blood 09/08/2024 Historical Provider MD LAB BLOOD ORDERABLES [facility] Result * (ABNORMAL) Lipid Panel, Standard (12/04/2022 2:35 PM EDT) Cholesterol, Total 223(H) <200 mg/dL [facility] HDL Cholesterol 61 > OR = 40 mg/dL [facility] Triglycerides 155(H) <150 mg/dL [facility] LDL Cholesterol 133(H) mg/dL (calc) [facility] Comment: Reference range: <100 Desirable range <100 mg/dL for primary prevention; <70 mg/dL for patients with CHD or diabetic patients with > or = 2 CHD risk factors. LDL-C is now calculated using the Mark-Laila calculation, which is a validated novel method providing better accuracy than the Friedewald equation in the estimation of LDL-C. Mark YOST et al. GUZMAN. 2013;310(19): 2345-4400 (http://education.[employer].Beezik/faq/IED845) Chol/HDLC Ratio 3.7 <5.0 (calc) [facility] Non-HDL Cholesterol 162(H) <130 mg/dL (calc) [facility] Comment: For patients with diabetes plus 1 major ASCVD risk factor, treating to a non-HDL-C goal of <100 mg/dL (LDL-C of <70 mg/dL) is considered a therapeutic option. Blood Venous blood specimen / Unknown 12/04/2022 2:35 PM EDT 12/04/2022 2:36 PM EDT Shauna Rodriguez MD LAB BLOOD ORDERABLES Final Result [facility] [address], [place] [address] [facility] [address] [place] [address] from Last 3 Months or Most Recently Relevant to Health Maintenance Insurance Member Subscriber Plan / Payer (Ef fective 2022-Present) Name:Darryl Marin Member ID:[id number] Relation to Subscriber:Self Name:Darryl Marin Subscriber ID:[id number] Payer ID:STATE Group ID:Not on file Type:Medicare [facility] [place] [email or web address] [address] [address] [facility] STANDARD Care Teams Superintendent Production Relationship Specialty Start Date End Date Shauna Grimes MD [address] [place] [address] PCP - General Family Medicine 01/20/19
--- OUTSIDE RECORDS SUMMARY | 2025-08-06 15:50 | XMS_ITS | Encounter Summary ---
Author Organization [facility] Address [address] [place] [address] Phone Care Team Providers Care Gravel Weigher Name Role Phone Pcp, Requested Primary Care Provider Unavailabl e Pcp, Unknown Primary Care Provider Unavailabl e Shauna Headley MD Primary Care Provider Encounter Details Date Type Department Care Team ([facility] Contact Info) Description 09/21/2019 Telephone [facility] [address] [place] [address] Margarita Alcantara MD, PhD, MPH [address] [place] [phone] [email or web address] Social History Tobacco Use Types Packs/Day Years [...] on filedocumented in this encounter Care Teams Gravel Weigher Relationship Specialty Start Date End Date Pcp, Requested PCP - General 12/26/18 10/04/19 Pcp, Unknown PCP - General 10/05/19 04/23/21 Shauna Headley MD [address] [place] [address] PCP - General Internal Medicine 04/24/21 documented as of this encounter Additional Source Comments The information contained in this document represents components of the legal health record. It is not the complete legal health record.[facility]
--- OUTSIDE RECORDS SUMMARY | 2025-08-06 15:50 | XMS_ITS | Encounter Summary ---
Author Organization [facility] Address [address] [place] [phone] Phone Care Team Providers Care Floor Worker Well Service Name Role Phone Pcp, Unknown Primary Care Provider Shauna Garner MD Primary Care Provider Encounter Details Date Type Department Care Team ([facility] st Contact Info) Description 10/30/[address] [facility] [address] [place] [address] Margarita Alcantara MD, PhD, MPH [address] [place] [phone] [email or web address] Social History Tobacco Use Types Packs/Day Years [...] on filedocumented in this encounter Care Teams Floor Worker Well Service Relationship Specialty Start Date End Date Pcp, Unknown PCP - General 10/05/19 04/23/21 Shauna Headley MD [address] [place] [id number] PCP - General Internal Medicine 04/24/21 documented as of this encounter Additional Source Comments The information contained in this document represents components of the legal health record. It is not the complete legal health record.[facility]
--- OUTSIDE RECORDS SUMMARY | 2025-08-06 15:50 | XMS_ITS | Encounter Summary ---
Author Organization [facility] Address [address] [place] [address] [place] [phone] Phone Care Team Providers Care Industrial Editor Name Role Phone Pcp, Unknown Primary Care Provider Robert e Shauna Headley MD Primary Care Provider Encounter Details Date Type Department Care Team (Late st Contact Info) Description 06/24/2020 Prep for Surgery [facility] [place] [address] [place] [address] [address] [place] [address] Margarita Alcantara MD, PhD, MPH [address] [place] [phone] [email or web address] Social History Tobacco Use Types Packs/Day Years [...] on filedocumented in this encounter Care Teams Industrial Editor Relationship Specialty Start Date End Date Pcp, Unknown PCP - General 10/05/19 04/23/21 Shauna Headley MD [address] [place] [address] [phone] PCP - General Internal Medicine 04/24/21 documented as of this encounter Additional Source Comments The information contained in this document represents components of the legal health record. It is not the complete legal health record.[facility]
--- OUTSIDE RECORDS SUMMARY | 2025-08-06 15:50 | XMS_ITS | Encounter Summary ---
Author Organization [facility] Address [address] [place] [phone] Phone Care Team Providers Care Technical Editor Name Role Phone Shauna Headley MD Primary Care Provider Encounter Details Date Type Department Care Team (Late st Contact Info) Description 03/20/2022 Procedure Pass [facility] [address]TH FL PERIOP DEPT [address] [place] [address] Social History Tobacco Use Types Packs/Day Years [...] on filedocumented in this encounter Care Teams Technical Editor Relationship Specialty Start Date End Date Shauna Headley MD [address] [place] [phone] PCP - General Internal Medicine 04/24/21 documented as of this encounter Additional Source Comments The information contained in this document represents components of the legal health record. It is not the complete legal health record.[facility]
== END 2025-08-06 11:05 | disposition home or self-care (01) ==
LOC: HO.ED 11:03
PROVIDERS: Emergency Provider Emergency Medicine; PCP Internal Medicine
DX: S91.331A Puncture wound without foreign body, right foot, initial encounter (principal); W45.8XXA Other foreign body or object entering through skin, initial encounter; M79.671 Pain in right foot; Y93.9 Activity, unspecified; Y92.9 Unspecified place or not applicable; Y99.9 Unspecified external cause status
CPT/HCPCS: 73630; 99282; 99283

== ENCOUNTER → 2025-08-06 08:34 | Outpatient (BNV) | payer MEDICARE, MEDICAID, SELFPAY | PROVIDERS: PCP Internal Medicine; Visit Provider Radiology Diagnostic Radiology | DX: R22.41 Localized swelling, mass and lump, right lower limb (principal) | CPT/HCPCS: 73630 ==